=== PATIENT | female | born 1950 | race African-American/Black ===

== ENCOUNTER 2017-03-15 09:42 | Emergency (ER) | payer MEDICARE, MEDICAID ==
[~2017-03-15] VITALS: Ht 162.6 cm; Wt 70.0 kg
[~2017-03-15 09:42] MED LIST: ACET-2178 PO; CARB4TAB8; GABA250S4 PO; METF100P3 MC; NORCO
[2017-03-15] MEDS ORDERED: IBUPROFEN 600MG TABLET PO ONE (14:45)
[2017-03-15 15:12] LABS: BASOPHILS % 0.5 % (0.0-2.0); EOSINOPHILS % 1.6 % (0.0-5.0); HEMATOCRIT. 34.7 % (36.0-48.0); HEMOGLOBIN. 11.8 g/dL (12.0-16.0); LYMPHOCYTES % 45.6 % (20.0-50.0); MEAN CORPUSCULAR HEMOGLOBIN 33.6 pg (28.0-32.0); MEAN PLATELET VOLUME 8.1 fl (7.4-10.4); MONOCYTES % 6.3 % (2.0-8.0); PLATELET 195 x1000/uL (130-400); RED BLOOD CELL COUNT 3.51 mill/uL (4.2-5.4); RED CELL DISTRIBUTION WIDTH 14.7 % (11.6-14.6)
[2017-03-15 15:18] LABS: CHLORIDE 111 mEq/L (98-107)
[2017-03-15 15:28] LABS: CARBON DIOXIDE 22 mEq/L (21-32)
[2017-03-15] MEDS ORDERED: ACETAMINOPHEN 325MG TABLET PO ONE (15:45)
[2017-03-15 15:53] VITALS: BP 124/76
[2017-03-15 16:01] LABS: CLARITY URINE CLEAR (CLEAR); COLOR URINE YELLOW (YELLOW); GLUCOSE URINE NEGATIVE (NEGATIVE); KETONES URINE NEGATIVE (NEGATIVE); LEUKOCYTE ESTERASE URINE 2+ (NEGATIVE); NITRITE URINE NEGATIVE (NEGATIVE); OCCULT BLOOD URINE NEGATIVE (NEGATIVE); PROTEIN URINE TRACE (NEGATIVE); SPECIFIC GRAVITY URINE 1.022 (1.005-1.030); UROBILINOGEN URINE 0.2 E.U./dL (0.2-1.0)
[2017-03-15 16:22] LABS: *AMPHETAMINES SCREEN URINE NEGATIVE (NEGATIVE); *BARBITURATES SCREEN URINE NEGATIVE (NEGATIVE); *BENZODIAZEPINES SCREEN URINE PRESUMTIVE POSITIVE (NEGATIVE); *COCAINE SCREEN URINE NEGATIVE (NEGATIVE); CANNABINOID URINE SCREEN PRESUMTIVE POSITIVE (NEGATIVE); METHADONE URINE SCREEN NEGATIVE (NEGATIVE); OPIATES URINE SCREEN NEGATIVE (NEGATIVE); PHENCYCLIDINE URINE SCREEN NEGATIVE (NEGATIVE)
== END 2017-03-15 17:46 | disposition home or self-care (01) ==
LOC: ER 10:35
DX: R07.89 Other chest pain (principal); N39.0 Urinary tract infection, site not specified; E11.65 Type 2 diabetes mellitus with hyperglycemia; J45.909 Unspecified asthma, uncomplicated; I10 Essential (primary) hypertension; Z79.84 Long term (current) use of oral hypoglycemic drugs; Z79.4 Long term (current) use of insulin; Z79.899 Other long term (current) drug therapy
CPT/HCPCS: 36415; 71010; 80053; 80305; 81001; 82962; 83690; 85025; 93005; 99285

== ENCOUNTER 2017-08-16 12:18 | Emergency (ER) | payer MEDICARE, MEDICAID ==
[~2017-08-16] VITALS: Ht 165.1 cm; Wt 61.0 kg
[~2017-08-16 12:18] MED LIST changes: -CARB4TAB8; +CARB4TAB8 PO; +HYDR-4134 PO; +LISI40TA4 PO; -METF100P3 MC; +METF100P3 PO; -NORCO; +NORCO PO
[2017-08-16] MEDS ORDERED: SODIUM CHLORIDE 0.9% 1,000 ML IV ONE (12:54)
[2017-08-16 13:36] LABS: BASOPHILS % 0.3 % (0.0-2.0); EOSINOPHILS % 1.3 % (0.0-5.0); HEMOGLOBIN. 11.7 g/dL (12.0-16.0); LYMPHOCYTES % 40.2 % (20.0-50.0); MEAN CORPUSCULAR VOLUME 98.9 fL (81.0-99.0); MEAN PLATELET VOLUME 8.6 fl (7.4-10.4); MONOCYTES % 7.7 % (2.0-8.0); NEUTROPHILS % 50.5 % (40.0-76.0); PLATELET 192 x1000/uL (130-400); RED BLOOD CELL COUNT 3.54 mill/uL (4.2-5.4); RED CELL DISTRIBUTION WIDTH 13.2 % (11.6-14.6)
[2017-08-16 13:41] LABS: INR 1.1; PROTHROMBIN TIME 11.5 sec (9.4-11.6)
[2017-08-16 13:52] LABS: CHLORIDE 115 mEq/L (98-107); TROPONIN I < 0.02 ng/mL (0.00-0.04)
[2017-08-16 14:23] LABS: KETONES URINE NEGATIVE (NEGATIVE); LEUKOCYTE ESTERASE URINE 2+ (NEGATIVE); NITRITE URINE NEGATIVE (NEGATIVE); OCCULT BLOOD URINE NEGATIVE (NEGATIVE); PH URINE 5.5 (4.5-8.0); PROTEIN URINE NEGATIVE (NEGATIVE); SPECIFIC GRAVITY URINE 1.019 (1.005-1.030); UROBILINOGEN URINE 0.2 E.U./dL (0.2-1.0)
[2017-08-16] MEDS ORDERED: ACETAMINOPHEN 325MG TABLET PO ONE (14:30)
[2017-08-16 14:54] LABS: CLARITY URINE CLOUDY (CLEAR); COLOR URINE YELLOW (YELLOW)
[2017-08-16 14:55] VITALS: BP 123/70
== END 2017-08-16 15:44 | disposition home or self-care (01) ==
LOC: ER 12:38
DX: I95.9 Hypotension, unspecified (principal); R53.1 Weakness; J45.909 Unspecified asthma, uncomplicated; E11.9 Type 2 diabetes mellitus without complications; I10 Essential (primary) hypertension; F12.90 Cannabis use, unspecified, uncomplicated; R56.9 Unspecified convulsions; Z88.6 Allergy status to analgesic agent; Z90.710 Acquired absence of both cervix and uterus
CPT/HCPCS: 36415; 71045; 80053; 81001; 83605; 83690; 84484; 85025; 85610; 93005; 96360; 96361; 99285; J7030

== ENCOUNTER 2017-09-18 17:26 | Emergency (ER) | payer MEDICARE, MEDICAID ==
[~2017-09-18] VITALS: Ht 152.4 cm; Wt 69.0 kg
[2017-09-18] MEDS ORDERED: ONDANSETRON HCL 4MG/2ML VIAL IV STA (18:15)
[2017-09-18] MEDS ORDERED: MORPHINE SULFATE 4 MG/ML CPJ (NOT FOR IM USE) IV STA (18:15)
[2017-09-18] MEDS ORDERED: SODIUM CHLORIDE 0.9% 500 ML IV ONE (18:15)
[2017-09-18 18:43] LABS: BASOPHILS % 0.5 % (0.0-2.0); EOSINOPHILS % 1.8 % (0.0-5.0); HEMATOCRIT. 39.9 % (36.0-48.0); HEMOGLOBIN. 13.3 g/dL (12.0-16.0); LYMPHOCYTES % 43.6 % (20.0-50.0); MEAN CORPUSCULAR HEMOGLOBIN 34.3 pg (28.0-32.0); MEAN CORPUSCULAR VOLUME 102.9 fL (81.0-99.0); MEAN PLATELET VOLUME 8.4 fl (7.4-10.4); MONOCYTES % 8.7 % (2.0-8.0); NEUTROPHILS % 45.4 % (40.0-76.0); PLATELET 188 x1000/uL (130-400); RED BLOOD CELL COUNT 3.88 mill/uL (4.2-5.4); RED CELL DISTRIBUTION WIDTH 14.4 % (11.6-14.6)
[2017-09-18 18:48] LABS: CHLORIDE 115 mEq/L (98-107)
[2017-09-18 18:50] LABS: PROTHROMBIN TIME 10.5 sec (9.4-11.6)
[2017-09-18 18:54] VITALS: BP 129/73
[2017-09-18 19:08] LABS: CLARITY URINE CLOUDY (CLEAR); COLOR URINE DARK YELLOW (YELLOW); KETONES URINE TRACE (NEGATIVE); LEUKOCYTE ESTERASE URINE 2+ (NEGATIVE); NITRITE URINE NEGATIVE (NEGATIVE); OCCULT BLOOD URINE NEGATIVE (NEGATIVE); PROTEIN URINE TRACE (NEGATIVE); SPECIFIC GRAVITY URINE 1.024 (1.005-1.030)
[2017-09-18] MEDS ORDERED: CEFTRIAXONE 1 G PREMIX 50 ML IV ONE (19:30)
== END 2017-09-18 21:27 | disposition home or self-care (01) ==
LOC: ER 17:44
DX: N39.0 Urinary tract infection, site not specified (principal); E11.9 Type 2 diabetes mellitus without complications; I10 Essential (primary) hypertension; J45.909 Unspecified asthma, uncomplicated; F12.10 Cannabis abuse, uncomplicated; R56.9 Unspecified convulsions; Z88.6 Allergy status to analgesic agent
CPT/HCPCS: 36415; 80053; 81003; 83690; 85025; 85610; 96361; 96365; 96375; 99284; J0696; J2270; J2405; J7030; J7040

== ENCOUNTER 2017-09-19 16:06 | Emergency (ER) | payer MEDICARE, MEDICAID ==
[~2017-09-19] VITALS: Ht 165.1 cm; Wt 68.0 kg
[2017-09-19] MEDS ORDERED: LORAZEPAM 2MG/ML CPJ IV PRN (18:30)
[2017-09-19 18:45] LABS: BASOPHILS % 0.6 % (0.0-2.0); EOSINOPHILS % 1.6 % (0.0-5.0); HEMATOCRIT. 37.9 % (36.0-48.0); HEMOGLOBIN. 12.6 g/dL (12.0-16.0); LYMPHOCYTES % 43.3 % (20.0-50.0); MEAN CORPUSCULAR HEMOGLOBIN 34.2 pg (28.0-32.0); MEAN CORPUSCULAR VOLUME 102.4 fL (81.0-99.0); MEAN PLATELET VOLUME 8.5 fl (7.4-10.4); MONOCYTES % 10.1 % (2.0-8.0); NEUTROPHILS % 44.4 % (40.0-76.0); PLATELET 166 x1000/uL (130-400); RED CELL DISTRIBUTION WIDTH 14.6 % (11.6-14.6)
[2017-09-19 18:52] LABS: CHLORIDE 113 mEq/L (98-107)
[2017-09-19 18:56] LABS: ETHANOL BLOOD < 10 mg/dL
[2017-09-19 19:13] VITALS: BP 124/61
== END 2017-09-19 19:17 | disposition home or self-care (01) ==
LOC: ER 16:06
DX: E11.649 Type 2 diabetes mellitus with hypoglycemia without coma (principal); I10 Essential (primary) hypertension; E11.9 Type 2 diabetes mellitus without complications; J45.909 Unspecified asthma, uncomplicated; F12.10 Cannabis abuse, uncomplicated; Z88.6 Allergy status to analgesic agent
CPT/HCPCS: 36415; 80053; 80185; 82962; 85025; 99284; G0482

== ENCOUNTER 2017-11-04 09:18 | Emergency (ER) | payer MEDICARE, MEDICAID ==
[~2017-11-04] VITALS: Ht 167.6 cm; Wt 70.0 kg
[2017-11-04 09:50] VITALS: BP 159/79
[2017-11-04 10:01] LABS: BASOPHILS % 0.5 % (0.0-2.0); CHLORIDE 109 mEq/L (98-107); EOSINOPHILS % 1.4 % (0.0-5.0); HEMATOCRIT. 37.6 % (36.0-48.0); HEMOGLOBIN. 12.6 g/dL (12.0-16.0); MEAN CORPUSCULAR HEMOGLOBIN 34.2 pg (28.0-32.0); MEAN CORPUSCULAR VOLUME 101.9 fL (81.0-99.0); MEAN PLATELET VOLUME 8.6 fl (7.4-10.4); MONOCYTES % 6.8 % (2.0-8.0); NEUTROPHILS % 58.3 % (40.0-76.0); PLATELET 192 x1000/uL (130-400); RED BLOOD CELL COUNT 3.69 mill/uL (4.2-5.4); RED CELL DISTRIBUTION WIDTH 13.6 % (11.6-14.6)
[2017-11-04 10:02] LABS: INR 1.1; PROTHROMBIN TIME 11.4 sec (9.4-11.6)
[2017-11-04] MEDS ORDERED: ONDANSETRON HCL 4MG/2ML VIAL IV NR (10:30)
[2017-11-04] MEDS ORDERED: SODIUM CHLORIDE 0.9% 1,000 ML IV ONE (10:30)
[2017-11-04 10:47] LABS: CLARITY URINE CLOUDY (CLEAR); COLOR URINE YELLOW (YELLOW); KETONES URINE NEGATIVE (NEGATIVE); LEUKOCYTE ESTERASE URINE 1+ (NEGATIVE); NITRITE URINE NEGATIVE (NEGATIVE); OCCULT BLOOD URINE NEGATIVE (NEGATIVE); PH URINE 5.5 (4.5-8.0); PROTEIN URINE TRACE (NEGATIVE); SPECIFIC GRAVITY URINE 1.019 (1.005-1.030)
== END 2017-11-04 12:58 | disposition home or self-care (01) ==
LOC: ER 09:21
DX: N39.0 Urinary tract infection, site not specified (principal); D75.89 Other specified diseases of blood and blood-forming organs; R19.7 Diarrhea, unspecified; R74.0 Nonspecific elevation of levels of transaminase and lactic acid dehydrogenase [LDH]; I25.2 Old myocardial infarction; J44.9 Chronic obstructive pulmonary disease, unspecified; I10 Essential (primary) hypertension; E11.9 Type 2 diabetes mellitus without complications; F12.10 Cannabis abuse, uncomplicated; Z90.710 Acquired absence of both cervix and uterus; Z88.6 Allergy status to analgesic agent; Z79.84 Long term (current) use of oral hypoglycemic drugs
CPT/HCPCS: 36415; 76705; 80053; 81003; 83690; 85025; 85610; 87086; 96361; 96374; 99285; J2405; J7030

== ENCOUNTER 2017-11-09 18:36 | Emergency (ER) | payer MEDICARE, MEDICAID ==
[~2017-11-09] VITALS: Ht 162.6 cm; Wt 80.0 kg
[2017-11-09] MEDS ORDERED: ONDANSETRON HCL 4MG/2ML VIAL IV ONE (19:15)
[2017-11-09] MEDS ORDERED: TRAMADOL 50MG TABLET PO ONE (19:15)
[2017-11-09 19:40] LABS: BASOPHILS % 0.4 % (0.0-2.0); CHLORIDE 111 mEq/L (98-107); EOSINOPHILS % 0.9 % (0.0-5.0); HEMATOCRIT. 37.5 % (36.0-48.0); HEMOGLOBIN. 12.6 g/dL (12.0-16.0); LYMPHOCYTES % 39.7 % (20.0-50.0); MEAN CORPUSCULAR HEMOGLOBIN 34.2 pg (28.0-32.0); MEAN CORPUSCULAR VOLUME 101.6 fL (81.0-99.0); MEAN PLATELET VOLUME 8.3 fl (7.4-10.4); MONOCYTES % 7.2 % (2.0-8.0); NEUTROPHILS % 51.8 % (40.0-76.0); PLATELET 198 x1000/uL (130-400); RED BLOOD CELL COUNT 3.69 mill/uL (4.2-5.4); RED CELL DISTRIBUTION WIDTH 13.3 % (11.6-14.6)
[2017-11-09 19:42] LABS: INR 1.2; PROTHROMBIN TIME 12.1 sec (9.4-11.6)
[2017-11-09 23:30] VITALS: BP 140/70
== END 2017-11-09 23:31 | disposition home or self-care (01) ==
LOC: ER 20:48
DX: R10.9 Unspecified abdominal pain (principal); G89.29 Other chronic pain; J45.909 Unspecified asthma, uncomplicated; E11.9 Type 2 diabetes mellitus without complications; F10.20 Alcohol dependence, uncomplicated; Z88.6 Allergy status to analgesic agent; Z90.710 Acquired absence of both cervix and uterus
CPT/HCPCS: 36415; 74022; 80053; 83690; 85025; 85610; 96374; 99285; J2405

== ENCOUNTER 2018-02-12 21:13 | Inpatient (IN) | payer MEDICARE, MEDICAID ==
[~2018-02-12] VITALS: Ht 167.6 cm; Wt 78.0 kg
[~2018-02-12 21:13] MED LIST changes: +ATOR10TA MT; +LEVO500T2 MT; -LISI40TA4 PO; -METF100P3 PO
[2018-02-13 00:18] LABS: BASOPHILS % 0.6 % (0.0-2.0); EOSINOPHILS % 2.5 % (0.0-5.0); HEMATOCRIT. 39.2 % (36.0-48.0); HEMOGLOBIN. 13.4 g/dL (12.0-16.0); LYMPHOCYTES % 31.1 % (20.0-50.0); MEAN CORPUSCULAR HEMOGLOBIN 34.2 pg (28.0-32.0); MEAN CORPUSCULAR VOLUME 100.4 fL (81.0-99.0); MEAN PLATELET VOLUME 8.5 fl (7.4-10.4); MONOCYTES % 6.7 % (2.0-8.0); NEUTROPHILS % 59.1 % (40.0-76.0); PLATELET 174 x1000/uL (130-400); RED BLOOD CELL COUNT 3.91 mill/uL (4.2-5.4); RED CELL DISTRIBUTION WIDTH 12.9 % (11.6-14.6)
[2018-02-13 00:22] LABS: CHLORIDE 107 mEq/L (98-107)
[2018-02-13 00:26] LABS: ETHANOL BLOOD < 10 mg/dL
[2018-02-13] MEDS ORDERED: ACETAMINOPHEN WITH CODEINE 300/30MG TABLET PO ONE (01:00)
[2018-02-13] MEDS ORDERED: NITROGLYCERIN 0.4MG TABLET SL SL SCH (04:28)
[2018-02-13 04:53] LABS: CLARITY URINE CLOUDY (CLEAR); COLOR URINE YELLOW (YELLOW); KETONES URINE NEGATIVE (NEGATIVE); LEUKOCYTE ESTERASE URINE 2+ (NEGATIVE); NITRITE URINE NEGATIVE (NEGATIVE); OCCULT BLOOD URINE NEGATIVE (NEGATIVE); PH URINE 5.5 (4.5-8.0); PROTEIN URINE 1+ (NEGATIVE); SPECIFIC GRAVITY URINE 1.021 (1.005-1.030); UROBILINOGEN URINE 0.2 E.U./dL (0.2-1.0)
[2018-02-13 06:46] LABS: *AMPHETAMINES SCREEN URINE NEGATIVE (NEGATIVE); *BARBITURATES SCREEN URINE NEGATIVE (NEGATIVE); *BENZODIAZEPINES SCREEN URINE NEGATIVE (NEGATIVE)
[2018-02-13 06:47] LABS: *COCAINE SCREEN URINE NEGATIVE (NEGATIVE); CANNABINOID URINE SCREEN PRESUMTIVE POSITIVE (NEGATIVE); METHADONE URINE SCREEN NEGATIVE (NEGATIVE); OPIATES URINE SCREEN PRESUMTIVE POSITIVE (NEGATIVE); PHENCYCLIDINE URINE SCREEN NEGATIVE (NEGATIVE)
[2018-02-13] MEDS ORDERED: ACETAMINOPHEN 650MG/20.3ML UDC GT PRN (08:30)
[2018-02-13] MEDS ORDERED: DIPHENHYDRAMINE 50MG/ML VIAL IV PRN (08:30)
[2018-02-13] MEDS ORDERED: IPRATROPIUM/ALBUTEROL 0.5-3(2.5)MG/3ML NEB INH PRN (08:30)
[2018-02-13] MEDS ORDERED: DOCUSATE SODIUM 100MG CAPSULE PO PRN (08:30)
[2018-02-13] MEDS ORDERED: ONDANSETRON HCL 4MG/2ML VIAL IV PRN (08:30)
[2018-02-13] MEDS ORDERED: ACETAMINOPHEN 650MG SUPP PR PRN (08:30)
[2018-02-13] MEDS ORDERED: ACETAMINOPHEN 325MG TABLET PO PRN (08:30)
[2018-02-13] MEDS ORDERED: NA PHOS,M-B/NA PHOS,DI-BA ENEMA 118ML PR PRN (08:30)
[2018-02-13] MEDS ORDERED: GUAIFENESIN 200MG/10ML SUGAR FREE UDC PO PRN (08:30)
[2018-02-13] MEDS ORDERED: NITROGLYCERIN 0.4MG TABLET SL SL PRN (08:45)
[2018-02-13 09:00] VITALS: BP 148/82
[2018-02-13] MEDS: HYDROCODONE/ACETAMINOPHEN 10/325MG TABLET PO PRN ×3 (09:07→20:24)
[2018-02-13 10:23] VITALS: BP 148/82
[2018-02-13 12:00] VITALS: BP 152/73
[2018-02-13] MEDS ORDERED: DEXTROSE 50% WATER 50ML SYRINGE IV PRN (12:00)
[2018-02-13] MEDS ORDERED: ATORVASTATIN CALCIUM 10MG TABLET PO SCH ×2 (12:00→21:00)
[2018-02-13] MEDS: BLOOD SUGAR DIAGNOSTIC STRIP TEST SCH ×3 (12:20→18:35)
[2018-02-13] MEDS: INSULIN LISPRO 100 UNITS/ML SUBCUT SCH ×3 (12:50→20:34)
[2018-02-13] MEDS: SODIUM CHLORIDE 0.9% 1,000 ML IV SCH ×2 (13:41→23:29)
[2018-02-13] MEDS: ENOXAPARIN 40MG/0.4ML SYR SUBCUT SCH (13:41)
[2018-02-13] MEDS: SODIUM CHLORIDE 0.9% INJ 3ML FLUSH IVF SCH ×2 (14:00→22:55)
[2018-02-13 15:11] LABS: BASOPHILS % 0.6 % (0.0-2.0); EOSINOPHILS % 3.1 % (0.0-5.0); HEMATOCRIT. 35.6 % (36.0-48.0); HEMOGLOBIN. 12.2 g/dL (12.0-16.0); LYMPHOCYTES % 44.9 % (20.0-50.0); MEAN CORPUSCULAR HEMOGLOBIN 34.4 pg (28.0-32.0); MEAN CORPUSCULAR VOLUME 100.5 fL (81.0-99.0); MEAN PLATELET VOLUME 8.7 fl (7.4-10.4); MONOCYTES % 7.9 % (2.0-8.0); NEUTROPHILS % 43.5 % (40.0-76.0); PLATELET 159 x1000/uL (130-400); RED BLOOD CELL COUNT 3.54 mill/uL (4.2-5.4); RED CELL DISTRIBUTION WIDTH 12.9 % (11.6-14.6)
[2018-02-13 15:16] LABS: D-DIMER < 0.19 mg/L FEU (<0.50); PROTHROMBIN TIME 10.7 sec (9.4-11.6)
[2018-02-13 15:26] LABS: CHLORIDE 110 mEq/L (98-107)
[2018-02-13 15:37] LABS: CREATINE KINASE MB FRACTION 0.7 ng/mL (0.5-3.6); LDL CHOLESTEROL 110 mg/dL (5-100)
[2018-02-13 15:38] LABS: CREATINE KINASE 37 IU/L (26-192)
[2018-02-13 15:39] LABS: HDL CHOLESTEROL 48 mg/dL (40-59); T4 FREE 1.22 ng/dL (0.76-1.46)
[2018-02-13 16:00] VITALS: BP 149/88
[2018-02-13 20:00] VITALS: BP 148/74
[2018-02-14] VITALS: BP 136/62
[2018-02-14 00:16] LABS: CREATINE KINASE 33 IU/L (26-192)
[2018-02-14 00:17] LABS: CREATINE KINASE MB FRACTION < 0.5 ng/mL (0.5-3.6)
[2018-02-14 04:00] VITALS: BP 150/69
[2018-02-14] MEDS: SODIUM CHLORIDE 0.9% INJ 3ML FLUSH IVF SCH (05:17)
[2018-02-14] MEDS: BLOOD SUGAR DIAGNOSTIC STRIP TEST SCH ×2 (06:37→12:20)
[2018-02-14] MEDS: INSULIN LISPRO 100 UNITS/ML SUBCUT SCH ×2 (07:50→12:50)
[2018-02-14 08:00] VITALS: BP 142/71
[2018-02-14] MEDS: ENOXAPARIN 40MG/0.4ML SYR SUBCUT SCH (08:47)
[2018-02-14] MEDS: HYDROCODONE/ACETAMINOPHEN 10/325MG TABLET PO PRN (09:24)
[2018-02-14 12:00] VITALS: BP 128/70
[2018-02-14] MEDS: SODIUM CHLORIDE 0.9% 1,000 ML IV SCH (12:52)
[2018-02-14 14:12] VITALS: BP 128/70
[2018-02-15] MEDS ORDERED: ASPIRIN 81MG TABLET PO SCH (09:00)
[2018-02-17] MEDS ORDERED: GABA-290 MT (14:07)
[2018-02-17] MEDS ORDERED: ACET-1465 PO (14:09)
[2018-02-17] MEDS ORDERED: SUCR1TAB MT (14:10)
[2018-02-17] MEDS ORDERED: PANT40TA4 MT (14:12)
[2018-02-17] MEDS ORDERED: TRAZ-213 MT (14:16)
[2018-02-17] MEDS ORDERED: LURA80TA MT (14:16)
[2018-02-17] MEDS ORDERED: ASPI-1159 MT (14:19)
[2018-02-17] MEDS ORDERED: METF10004 MT (14:20)
[2018-02-17] MEDS ORDERED: XALAO EACHEYE (14:21)
[2018-02-17] MEDS ORDERED: ONDA4TAB50 MT (14:22)
[2018-02-17] MEDS ORDERED: BUSP10TA3 MT (14:23)
[2018-02-17] MEDS ORDERED: METO25TA6 MT (14:40)
[2018-02-17] MEDS ORDERED: LOSA50TA20 MT (14:41)
[2018-02-17] MEDS ORDERED: INSU100I19 SQ (14:42)
[2018-02-17] MEDS ORDERED: DOCU250C14 GT (14:43)
[2018-02-17] MEDS ORDERED: ATROV INH (14:44)
== END 2018-02-14 16:05 | disposition home or self-care (01) | DRG 392 ==
LOC: ER 21:32 → 6WST 02-13 01:15 → EDBEDREQ 02-13 01:21 → EDBEDREQTM 02-13 01:21 → ENRESERV 02-13 07:38
PROVIDERS: ADMIT Family Medicine; ATTEND Family Medicine
DX: K21.9 Gastro-esophageal reflux disease without esophagitis (principal); E78.5 Hyperlipidemia, unspecified; I10 Essential (primary) hypertension; F10.10 Alcohol abuse, uncomplicated; J45.909 Unspecified asthma, uncomplicated; E11.65 Type 2 diabetes mellitus with hyperglycemia; Z87.891 Personal history of nicotine dependence; Z88.9 Allergy status to unspecified drugs, medicaments and biological substances; Z79.4 Long term (current) use of insulin
CPT/HCPCS: 36415; 70450; 71045; 80053; 80061; 80305; 81003; 82550; 82553; 82962; 83036; 83880; 84439; 84443; 84484; 85025; 85379; 85610; 93005; 93970; 99285; G0482; J1650; J1815; J7030

== ENCOUNTER 2018-02-26 21:14 | Emergency (ER) | payer MEDICARE, MEDICAID ==
[~2018-02-26] VITALS: Ht 162.6 cm; Wt 59.0 kg
[~2018-02-26 21:14] MED LIST changes: +ASPI-1159 MT; +ATROV INH; +BUSP10TA3 MT; +DOCU250C14 GT; +GABA-290 MT; -GABA250S4 PO; +INSU100I19 SQ; -LEVO500T2 MT; +LOSA50TA20 MT; +LURA80TA MT; +METF10004 MT; +METO25TA6 MT; -NORCO PO; +ONDA4TAB50 MT; +PANT40TA4 MT; +SUCR1TAB MT; +TRAZ-213 MT; +XALAO EACHEYE
[2018-02-26] MEDS ORDERED: ACETAMINOPHEN 325MG TABLET PO ONE (23:15)
[2018-02-27] MEDS ORDERED: DIPHENHYDRAMINE 50MG/ML VIAL IV ONE (00:15)
[2018-02-27 00:37] LABS: CLARITY URINE TURBID (CLEAR); COLOR URINE DARK YELLOW (YELLOW); KETONES URINE TRACE (NEGATIVE); LEUKOCYTE ESTERASE URINE 3+ (NEGATIVE); NITRITE URINE NEGATIVE (NEGATIVE); OCCULT BLOOD URINE 2+ (NEGATIVE); PROTEIN URINE 2+ (NEGATIVE); SPECIFIC GRAVITY URINE 1.022 (1.005-1.030)
[2018-02-27 00:45] LABS: *AMPHETAMINES SCREEN URINE NEGATIVE (NEGATIVE); *BARBITURATES SCREEN URINE NEGATIVE (NEGATIVE)
[2018-02-27 00:46] LABS: *BENZODIAZEPINES SCREEN URINE NEGATIVE (NEGATIVE); *COCAINE SCREEN URINE NEGATIVE (NEGATIVE); CANNABINOID URINE SCREEN PRESUMTIVE POSITIVE (NEGATIVE); METHADONE URINE SCREEN NEGATIVE (NEGATIVE); OPIATES URINE SCREEN PRESUMTIVE POSITIVE (NEGATIVE); PHENCYCLIDINE URINE SCREEN NEGATIVE (NEGATIVE)
[2018-02-27 01:35] LABS: BASOPHILS % 0.3 % (0.0-2.0); EOSINOPHILS % 2.3 % (0.0-5.0); HEMATOCRIT. 33.4 % (36.0-48.0); HEMOGLOBIN. 11.6 g/dL (12.0-16.0); LYMPHOCYTES % 50.3 % (20.0-50.0); MEAN CORPUSCULAR HEMOGLOBIN 35.6 pg (28.0-32.0); MEAN CORPUSCULAR VOLUME 102.1 fL (81.0-99.0); MEAN PLATELET VOLUME 8.2 fl (7.4-10.4); MONOCYTES % 6.9 % (2.0-8.0); NEUTROPHILS % 40.2 % (40.0-76.0); PLATELET 172 x1000/uL (130-400); RED BLOOD CELL COUNT 3.27 mill/uL (4.2-5.4); RED CELL DISTRIBUTION WIDTH 13.4 % (11.6-14.6)
[2018-02-27 01:43] LABS: CHLORIDE 113 mEq/L (98-107)
[2018-02-27 01:48] LABS: ETHANOL BLOOD < 10 mg/dL
[2018-02-27 01:59] LABS: CARBAMAZEPINE < 0.5 ug/mL (4-12); PHENOBARBITAL < 2.1 ug/mL (15.0-40.0); VALPROIC ACID < 3.0 ug/mL (50-100)
[2018-02-27 03:50] VITALS: BP 141/76
== END 2018-02-27 03:53 | disposition home or self-care (01) ==
LOC: ER 21:14
DX: G40.909 Epilepsy, unspecified, not intractable, without status epilepticus (principal); N39.0 Urinary tract infection, site not specified; R41.82 Altered mental status, unspecified; J45.909 Unspecified asthma, uncomplicated; E11.9 Type 2 diabetes mellitus without complications; Z79.4 Long term (current) use of insulin; Z88.6 Allergy status to analgesic agent; Z79.82 Long term (current) use of aspirin
CPT/HCPCS: 36415; 70450; 80053; 80156; 80165; 80184; 80185; 80305; 81003; 82962; 85025; 87086; 96374; 99285; G0482; J1200

== ENCOUNTER 2018-04-12 22:09 | Emergency (ER) | payer MEDICARE, MEDICAID ==
[~2018-04-12] VITALS: Ht 152.4 cm; Wt 75.0 kg
[~2018-04-12 22:09] MED LIST changes: -ACET-2178 PO; -METF10004 MT
[2018-04-12] MEDS ORDERED: ACETAMINOPHEN 325MG TABLET PO STA (23:21)
[2018-04-13 00:48] LABS: BASOPHILS % 0.4 % (0.0-2.0); EOSINOPHILS % 0.6 % (0.0-5.0); HEMOGLOBIN. 10.7 g/dL (12.0-16.0); LYMPHOCYTES % 30.4 % (20.0-50.0); MEAN CORPUSCULAR HEMOGLOBIN 35.3 pg (28.0-32.0); MEAN CORPUSCULAR VOLUME 102.5 fL (81.0-99.0); MEAN PLATELET VOLUME 8.6 fl (7.4-10.4); MONOCYTES % 10.5 % (2.0-8.0); NEUTROPHILS % 58.1 % (40.0-76.0); PLATELET 155 x1000/uL (130-400); RED BLOOD CELL COUNT 3.03 mill/uL (4.2-5.4); RED CELL DISTRIBUTION WIDTH 12.9 % (11.6-14.6)
[2018-04-13 00:52] LABS: CHLORIDE 105 mEq/L (98-107)
[2018-04-13 00:55] LABS: PARTIAL THROMBOPLASTIN TIME 24.5 sec (23.4-31.0)
[2018-04-13 01:02] LABS: BETA HYDROXYBUTYRATE 0.1 mMol/L (0.0-0.3)
[2018-04-13 01:08] LABS: CLARITY URINE CLEAR (CLEAR); COLOR URINE YELLOW (YELLOW); KETONES URINE NEGATIVE (NEGATIVE); LEUKOCYTE ESTERASE URINE NEGATIVE (NEGATIVE); NITRITE URINE NEGATIVE (NEGATIVE); OCCULT BLOOD URINE NEGATIVE (NEGATIVE); PH URINE 5.5 (4.5-8.0); PROTEIN URINE 1+ (NEGATIVE); UROBILINOGEN URINE 0.2 E.U./dL (0.2-1.0)
[2018-04-13] MEDS ORDERED: INSULIN REGULAR (HUMULIN R) 300UNITS/3ML SUBCUT SCH (05:27)
[2018-04-13] MEDS ORDERED: MORPHINE SULFATE 4 MG/ML CPJ (NOT FOR IM USE) IV ONE (05:30)
[2018-04-13 10:56] VITALS: BP 134/77
== END 2018-04-13 11:21 | disposition home or self-care (01) ==
LOC: ER 23:42 → CANBEDREQ 04-13 07:45 → ER 04-13 11:21
DX: J06.9 Acute upper respiratory infection, unspecified (principal); E11.65 Type 2 diabetes mellitus with hyperglycemia; I10 Essential (primary) hypertension; K21.9 Gastro-esophageal reflux disease without esophagitis; R56.9 Unspecified convulsions; Z98.890 Other specified postprocedural states; Z96.659 Presence of unspecified artificial knee joint; Z79.4 Long term (current) use of insulin; Z79.899 Other long term (current) drug therapy; Z88.5 Allergy status to narcotic agent
CPT/HCPCS: 36415; 71045; 80053; 81003; 82010; 82962; 83605; 84484; 85025; 85610; 85730; 87040; 87086; 87804; 96372; 96374; 99285; J1815; J2270

== ENCOUNTER 2018-07-18 17:26 | Emergency (ER) | payer MEDICARE, MEDICAID ==
[~2018-07-18] VITALS: Ht 172.7 cm; Wt 75.0 kg
[2018-07-18] MEDS ORDERED: ACETAMINOPHEN 325MG TABLET PO ONE (21:00)
[2018-07-18 23:49] LABS: BASOPHILS % 0.3 % (0.0-2.0); HEMATOCRIT. 36.5 % (36.0-48.0); HEMOGLOBIN. 12.5 g/dL (12.0-16.0); LYMPHOCYTES % 32.1 % (20.0-50.0); MEAN CORPUSCULAR HEMOGLOBIN 33.4 pg (28.0-32.0); MEAN CORPUSCULAR VOLUME 97.2 fL (81.0-99.0); MEAN PLATELET VOLUME 8.8 fl (7.4-10.4); MONOCYTES % 9.9 % (2.0-8.0); NEUTROPHILS % 56.7 % (40.0-76.0); PLATELET 166 x1000/uL (130-400); RED BLOOD CELL COUNT 3.76 mill/uL (4.2-5.4); RED CELL DISTRIBUTION WIDTH 13.3 % (11.6-14.6)
[2018-07-18 23:59] LABS: CHLORIDE 106 mEq/L (98-107)
[2018-07-19] MEDS ORDERED: POTASSIUM CHLORIDE 20MEQ TABLET SR PO SCH (00:30)
[2018-07-19] MEDS ORDERED: HYDRALAZINE HCL 25MG TABLET PO ONE (01:30)
[2018-07-19] MEDS ORDERED: ACETAMINOPHEN 325MG TABLET PO SCH (01:30)
[2018-07-19] MEDS ORDERED: METOPROLOL TARTRATE 25MG TABLET PO ONE (01:30)
[2018-07-19] MEDS ORDERED: LOSARTAN POTASSIUM 50 MG TABLET PO ONE (01:30)
[2018-07-19 03:53] VITALS: BP 174/71
== END 2018-07-19 03:56 | disposition home or self-care (01) ==
LOC: ER 17:36 → CANBEDREQ 07-19 03:40 → ER 07-19 03:56
DX: R07.89 Other chest pain (principal); E87.6 Hypokalemia; G89.29 Other chronic pain; E11.9 Type 2 diabetes mellitus without complications; K21.9 Gastro-esophageal reflux disease without esophagitis; G40.909 Epilepsy, unspecified, not intractable, without status epilepticus; I11.9 Hypertensive heart disease without heart failure; R94.31 Abnormal electrocardiogram [ECG] [EKG]; Z88.6 Allergy status to analgesic agent
CPT/HCPCS: 36415; 71045; 83880; 84484; 93005; 99284

== ENCOUNTER 2018-08-21 23:59 | Inpatient (IN) | payer MEDICARE, MEDICAID ==
[~2018-08-21] VITALS: Ht 177.8 cm; Wt 72.6 kg
[2018-08-22] VITALS: BP 111/60
[2018-08-22] MEDS ORDERED: HYDROCODONE/ACETAMINOPHEN 5/325MG TABLET PO STA (00:55)
[2018-08-22 02:04] LABS: EOSINOPHILS % 1.5 % (0.0-5.0); HEMATOCRIT. 37.1 % (36.0-48.0); HEMOGLOBIN. 12.5 g/dL (12.0-16.0); LYMPHOCYTES % 35.2 % (20.0-50.0); MEAN CORPUSCULAR HEMOGLOBIN 33.5 pg (28.0-32.0); MEAN CORPUSCULAR VOLUME 99.2 fL (81.0-99.0); MONOCYTES % 5.2 % (2.0-8.0); NEUTROPHILS % 57.1 % (40.0-76.0); RED BLOOD CELL COUNT 3.73 mill/uL (4.2-5.4); RED CELL DISTRIBUTION WIDTH 13.4 % (11.6-14.6)
[2018-08-22 02:06] LABS: CHLORIDE 116 mEq/L (98-107)
[2018-08-22 02:20] LABS: MEAN PLATELET VOLUME 10.1 fl (7.4-10.4)
[2018-08-22 02:21] LABS: PLATELET 154 x1000/uL (130-400)
[2018-08-22] MEDS ORDERED: ASPIRIN 325MG EC TABLET PO ONE (03:15)
[2018-08-22] MEDS ORDERED: GABAPENTIN 100MG CAPSULE PO ONE (03:30)
[2018-08-22] MEDS ORDERED: HYDROCODONE/ACETAMINOPHEN 10/325MG TABLET PO SCH (06:45)
[2018-08-22] MEDS ORDERED: NA PHOS,M-B/NA PHOS,DI-BA ENEMA 118ML PR PRN (09:45)
[2018-08-22] MEDS ORDERED: ACETAMINOPHEN 650MG SUPP PR PRN (09:45)
[2018-08-22] MEDS ORDERED: MAGNESIUM/ALUMINUM HYDROXIDE/SIMETHICONE 30ML UDC PO PRN (09:45)
[2018-08-22] MEDS ORDERED: ONDANSETRON HCL 4MG/2ML INJ IV PRN (09:45)
[2018-08-22] MEDS ORDERED: CLONIDINE 0.1MG TABLET PO PRN (09:45)
[2018-08-22] MEDS ORDERED: DIPHENHYDRAMINE 50MG/ML VIAL IV PRN (09:45)
[2018-08-22] MEDS ORDERED: DOCUSATE SODIUM 100MG CAPSULE PO PRN (09:45)
[2018-08-22] MEDS ORDERED: IPRATROPIUM/ALBUTEROL 0.5-3(2.5)MG/3ML NEB INH PRN (09:45)
[2018-08-22] MEDS ORDERED: ACETAMINOPHEN 650MG/20.3ML UDC GT PRN (09:45)
[2018-08-22] MEDS ORDERED: GUAIFENESIN 200MG/10ML SUGAR FREE UDC PO PRN (09:45)
[2018-08-22] MEDS: HYDROCODONE/ACETAMINOPHEN 5/325MG TABLET PO PRN ×4 (10:10→23:34)
[2018-08-22] MEDS ORDERED: REGADENOSON 0.4 MG/5 ML IV SCH (10:45)
[2018-08-22 17:35] LABS: T4 FREE 1.02 ng/dL (0.76-1.46)
[2018-08-22 18:05] LABS: CREATINE KINASE MB FRACTION < 1.0 ng/mL (0.5-3.6)
[2018-08-22 18:10] LABS: CREATINE KINASE 70 IU/L (26-192)
[2018-08-22] MEDS ORDERED: AMLODIPINE 10MG TABLET PO NR (19:30)
[2018-08-22 20:00] VITALS: BP 183/79
[2018-08-22 21:00] VITALS: BP 183/79
[2018-08-22] MEDS ORDERED: DEXTROSE 50% WATER 50ML SYRINGE IV PRN (21:30)
[2018-08-22] MEDS ORDERED: MEDICATION NOT ON FORMULARY EA (Aspirin (Aspirin Low Dose) 1 TAB) MT SCH (21:30)
[2018-08-22] MEDS ORDERED: CARBINOXAMINE MALEATE 4 MG PO SCH (21:30)
[2018-08-22] MEDS: LATANOPROST 0.005% OPHTH DROPS 2.5ML EACHEYE SCH (22:00)
[2018-08-22] MEDS: HYDRALAZINE HCL 50MG TABLET PO SCH ×2 (22:00→22:27)
[2018-08-22] MEDS: ATORVASTATIN CALCIUM 10MG TABLET PO SCH (22:26)
[2018-08-22] MEDS: GABAPENTIN 300MG CAPSULE PO SCH (22:26)
[2018-08-22] MEDS: SODIUM CHLORIDE 0.9% INJ 3ML FLUSH IVF SCH (22:27)
[2018-08-22] MEDS: METOPROLOL TARTRATE 25MG TABLET PO SCH (22:28)
[2018-08-22] MEDS ORDERED: LOSARTAN POTASSIUM 50 MG TABLET PO SCH (22:30)
[2018-08-22] MEDS: LISINOPRIL 20MG TABLET PO SCH ×2 (22:30→22:31)
[2018-08-22] MEDS: BUSPIRONE HCL 10MG TABLET PO SCH (22:32)
[2018-08-22] MEDS: ACETAMINOPHEN 325MG TABLET PO PRN (22:33)
[2018-08-22] MEDS: INSULIN GLARGINE UD 100 UNITS/ML SYR SUBCUT SCH (23:45)
[2018-08-23] VITALS: BP 111/60
[2018-08-23 00:42] LABS: CREATINE KINASE 87 IU/L (26-192); CREATINE KINASE MB FRACTION < 1.0 ng/mL (0.5-3.6)
[2018-08-23 04:00] VITALS: BP 157/72
[2018-08-23] MEDS: HYDROCODONE/ACETAMINOPHEN 5/325MG TABLET PO PRN ×5 (04:25→23:25)
[2018-08-23] MEDS: METOPROLOL TARTRATE 25MG TABLET PO SCH ×3 (06:00→21:36)
[2018-08-23] MEDS: BLOOD SUGAR DIAGNOSTIC STRIP TEST SCH ×4 (06:06→21:57)
[2018-08-23] MEDS: SODIUM CHLORIDE 0.9% INJ 3ML FLUSH IVF SCH ×3 (06:12→21:40)
[2018-08-23] MEDS: BUSPIRONE HCL 10MG TABLET PO SCH ×3 (06:54→21:57)
[2018-08-23] MEDS: HYDRALAZINE HCL 50MG TABLET PO SCH ×3 (06:55→21:37)
[2018-08-23 07:14] LABS: BASOPHILS % 0.5 % (0.0-2.0); EOSINOPHILS % 1.8 % (0.0-5.0); HEMATOCRIT. 33.8 % (36.0-48.0); HEMOGLOBIN. 11.4 g/dL (12.0-16.0); LYMPHOCYTES % 50.7 % (20.0-50.0); MEAN CORPUSCULAR HEMOGLOBIN 33.9 pg (28.0-32.0); MEAN CORPUSCULAR VOLUME 100.4 fL (81.0-99.0); MONOCYTES % 8.3 % (2.0-8.0); NEUTROPHILS % 38.7 % (40.0-76.0); PLATELET 150 x1000/uL (130-400); RED BLOOD CELL COUNT 3.37 mill/uL (4.2-5.4); RED CELL DISTRIBUTION WIDTH 13.3 % (11.6-14.6)
[2018-08-23 07:21] LABS: CHLORIDE 112 mEq/L (98-107)
[2018-08-23 07:27] LABS: LDL CHOLESTEROL 84 mg/dL (5-100)
[2018-08-23 07:28] LABS: HDL CHOLESTEROL 60 mg/dL (40-59)
[2018-08-23 08:00] VITALS: BP 156/58
[2018-08-23] MEDS: GABAPENTIN 300MG CAPSULE PO SCH ×2 (09:00→20:27)
[2018-08-23] MEDS: LISINOPRIL 20MG TABLET PO SCH (09:28)
[2018-08-23] MEDS: ASPIRIN 81MG TABLET PO SCH (09:29)
[2018-08-23] MEDS: AMLODIPINE 10MG TABLET PO SCH (09:29)
[2018-08-23] MEDS: ENOXAPARIN 40MG/0.4ML SYR SUBCUT SCH (09:30)
[2018-08-23 12:00] VITALS: BP 150/74
[2018-08-23] MEDS: ACETAMINOPHEN 325MG TABLET PO PRN (12:00)
[2018-08-23] MEDS: INSULIN LISPRO 100 UNITS/ML SUBCUT SCH ×3 (12:15→22:00)
[2018-08-23 16:00] VITALS: BP 151/63
[2018-08-23 20:00] VITALS: BP 153/84
[2018-08-23] MEDS: LATANOPROST 0.005% OPHTH DROPS 2.5ML EACHEYE SCH (20:27)
[2018-08-23] MEDS: ATORVASTATIN CALCIUM 10MG TABLET PO SCH (20:27)
[2018-08-23] MEDS ORDERED: MEDICATION NOT ON FORMULARY EA (Lurasidone Hcl (Latuda) 1 TAB) MT SCH (21:00)
[2018-08-23] MEDS ORDERED: INSULIN DETEMIR 30 UNIT SQ SCH (21:00)
[2018-08-23] MEDS ORDERED: LORAZEPAM 2MG/ML CPJ IV NR (21:45)
[2018-08-23] MEDS: INSULIN GLARGINE UD 100 UNITS/ML SYR SUBCUT SCH (22:01)
[2018-08-24] VITALS: BP 135/64
[2018-08-24 04:00] VITALS: BP 131/60
[2018-08-24] MEDS: METOPROLOL TARTRATE 25MG TABLET PO SCH (06:27)
[2018-08-24] MEDS: HYDROCODONE/ACETAMINOPHEN 5/325MG TABLET PO PRN (06:27)
[2018-08-24] MEDS: HYDRALAZINE HCL 50MG TABLET PO SCH (06:28)
[2018-08-24] MEDS: SODIUM CHLORIDE 0.9% INJ 3ML FLUSH IVF SCH (06:28)
[2018-08-24] MEDS: BUSPIRONE HCL 10MG TABLET PO SCH (06:28)
[2018-08-24] MEDS: INSULIN LISPRO 100 UNITS/ML SUBCUT SCH ×2 (06:33→12:15)
[2018-08-24] MEDS: BLOOD SUGAR DIAGNOSTIC STRIP TEST SCH ×2 (06:33→11:45)
[2018-08-24] MEDS ORDERED: REGADENOSON 0.4 MG/5 ML IV ONE (07:56)
[2018-08-24 08:00] VITALS: BP 153/73
[2018-08-24] MEDS: ENOXAPARIN 40MG/0.4ML SYR SUBCUT SCH (09:00)
[2018-08-24] MEDS: ASPIRIN 81MG TABLET PO SCH (09:23)
[2018-08-24] MEDS: GABAPENTIN 300MG CAPSULE PO SCH (09:24)
[2018-08-24] MEDS: AMLODIPINE 10MG TABLET PO SCH (09:24)
[2018-08-24] MEDS: LISINOPRIL 20MG TABLET PO SCH (09:25)
[2018-08-24 11:39] VITALS: BP 153/73
== END 2018-08-24 15:20 | disposition home or self-care (01) | DRG 392 ==
LOC: ER 23:59 → 5WST 08-22 03:14 → ENRESERV 08-22 19:05
PROVIDERS: ADMIT Family Medicine; ATTEND Family Medicine
DX: K21.9 Gastro-esophageal reflux disease without esophagitis (principal); E11.40 Type 2 diabetes mellitus with diabetic neuropathy, unspecified; I10 Essential (primary) hypertension; E78.5 Hyperlipidemia, unspecified; G40.909 Epilepsy, unspecified, not intractable, without status epilepticus; F12.90 Cannabis use, unspecified, uncomplicated; F41.9 Anxiety disorder, unspecified; J45.909 Unspecified asthma, uncomplicated; Z88.9 Allergy status to unspecified drugs, medicaments and biological substances; Z79.4 Long term (current) use of insulin; I25.2 Old myocardial infarction; Z79.84 Long term (current) use of oral hypoglycemic drugs
CPT/HCPCS: 36415; 78452; 80061; 82550; 82553; 82962; 83036; 83880; 84439; 84443; 84484; 85379; 93005; 93017; 93306; 93970; 99284; 99285; A9500; J1200; J1650; J1815; J2060; J2785

== ENCOUNTER 2018-11-24 10:35 | Emergency (ER) | payer MEDICARE, MEDICAID ==
[~2018-11-24] VITALS: Ht 162.6 cm; Wt 70.0 kg
[2018-11-24 11:59] LABS: CLARITY URINE CLEAR (CLEAR); COLOR URINE YELLOW (YELLOW); KETONES URINE NEGATIVE (NEGATIVE); LEUKOCYTE ESTERASE URINE TRACE (NEGATIVE); NITRITE URINE NEGATIVE (NEGATIVE); OCCULT BLOOD URINE NEGATIVE (NEGATIVE); PH URINE 5.5 (4.5-8.0); PROTEIN URINE 2+ (NEGATIVE); SPECIFIC GRAVITY URINE 1.019 (1.005-1.030); UROBILINOGEN URINE 0.2 E.U./dL (0.2-1.0)
[2018-11-24] MEDS ORDERED: KETOROLAC 15MG/ML VIAL IV ONE (12:45)
[2018-11-24] MEDS ORDERED: ONDANSETRON HCL 4MG/2ML INJ IV ONE (12:45)
[2018-11-24 13:20] VITALS: BP 138/75
== END 2018-11-24 18:48 | disposition home or self-care (01) ==
LOC: ER 10:35
DX: R30.0 Dysuria (principal); F41.9 Anxiety disorder, unspecified; E11.9 Type 2 diabetes mellitus without complications; J45.909 Unspecified asthma, uncomplicated; I10 Essential (primary) hypertension; Z79.899 Other long term (current) drug therapy; Z88.6 Allergy status to analgesic agent; Z79.4 Long term (current) use of insulin; Z79.82 Long term (current) use of aspirin
CPT/HCPCS: 81003; 96374; 96375; 99283; J1885; J2405

== ENCOUNTER 2019-01-02 11:45 | Emergency (ER) | payer MEDICARE, MEDICAID ==
[~2019-01-02] VITALS: Ht 167.6 cm; Wt 75.0 kg
[~2019-01-02 11:45] MED LIST changes: -ASPI-1159 MT; +ASPI-1393 MT; -LOSA50TA20 MT; +LOSA50TA41 MT
[2019-01-02 13:26] LABS: BASOPHILS % 0.4 % (0.0-2.0); EOSINOPHILS % 1.3 % (0.0-5.0); HEMATOCRIT. 35.8 % (36.0-48.0); HEMOGLOBIN. 12.3 g/dL (12.0-16.0); LYMPHOCYTES % 36.5 % (20.0-50.0); MEAN CORPUSCULAR VOLUME 102.2 fL (81.0-99.0); MEAN PLATELET VOLUME 8.1 fl (7.4-10.4); MONOCYTES % 6.6 % (2.0-8.0); NEUTROPHILS % 55.2 % (40.0-76.0); PLATELET 181 x1000/uL (130-400); RED CELL DISTRIBUTION WIDTH 13.3 % (11.6-14.6)
[2019-01-02 13:32] LABS: CHLORIDE 113 mEq/L (98-107)
[2019-01-02 13:33] LABS: PROTHROMBIN TIME 10.2 sec (9.6-11.0)
[2019-01-02 13:36] LABS: ETHANOL BLOOD < 10 mg/dL
[2019-01-02 14:56] LABS: CLARITY URINE CLOUDY (CLEAR); COLOR URINE YELLOW (YELLOW); KETONES URINE TRACE (NEGATIVE); LEUKOCYTE ESTERASE URINE TRACE (NEGATIVE); NITRITE URINE NEGATIVE (NEGATIVE); OCCULT BLOOD URINE NEGATIVE (NEGATIVE); PROTEIN URINE 2+ (NEGATIVE); SPECIFIC GRAVITY URINE 1.022 (1.005-1.030); UROBILINOGEN URINE 0.2 E.U./dL (0.2-1.0)
[2019-01-02 15:04] LABS: *AMPHETAMINES SCREEN URINE NEGATIVE (NEGATIVE); *BARBITURATES SCREEN URINE NEGATIVE (NEGATIVE); *BENZODIAZEPINES SCREEN URINE NEGATIVE (NEGATIVE); *COCAINE SCREEN URINE NEGATIVE (NEGATIVE)
[2019-01-02 15:05] LABS: CANNABINOID URINE SCREEN PRESUMTIVE POSITIVE (NEGATIVE); METHADONE URINE SCREEN NEGATIVE (NEGATIVE); OPIATES URINE SCREEN PRESUMTIVE POSITIVE (NEGATIVE); PHENCYCLIDINE URINE SCREEN NEGATIVE (NEGATIVE)
[2019-01-02] MEDS ORDERED: TRAMADOL 50MG TABLET PO ONE (15:15)
[2019-01-02] MEDS ORDERED: NITROFURANTOIN 100MG M/M CAPSULE PO ONE (15:15)
[2019-01-02 15:40] VITALS: BP 135/78
== END 2019-01-02 15:59 | disposition home or self-care (01) ==
LOC: ER 12:21
DX: N39.0 Urinary tract infection, site not specified (principal); I11.0 Hypertensive heart disease with heart failure; K59.00 Constipation, unspecified; J45.909 Unspecified asthma, uncomplicated; F41.9 Anxiety disorder, unspecified; E11.9 Type 2 diabetes mellitus without complications; Z79.82 Long term (current) use of aspirin; Z79.899 Other long term (current) drug therapy; Z79.4 Long term (current) use of insulin; Z88.6 Allergy status to analgesic agent
CPT/HCPCS: 36415; 74176; 80305; 80320; 99284; G0480

== ENCOUNTER 2019-01-25 10:45 | Inpatient (IN) | payer MEDICARE, MEDICAID ==
[~2019-01-25] VITALS: Ht 167.6 cm; Wt 63.5 kg
[2019-01-25 12:54] LABS: BASOPHILS % 0.5 % (0.0-2.0); EOSINOPHILS % 1.4 % (0.0-5.0); HEMATOCRIT. 35.7 % (36.0-48.0); HEMOGLOBIN. 12.4 g/dL (12.0-16.0); LYMPHOCYTES % 46.2 % (20.0-50.0); MEAN CORPUSCULAR HEMOGLOBIN 34.9 pg (28.0-32.0); MEAN CORPUSCULAR VOLUME 100.8 fL (81.0-99.0); MEAN PLATELET VOLUME 8.2 fl (7.4-10.4); NEUTROPHILS % 44.9 % (40.0-76.0); PLATELET 176 x1000/uL (130-400); RED BLOOD CELL COUNT 3.55 mill/uL (4.2-5.4); RED CELL DISTRIBUTION WIDTH 12.7 % (11.6-14.6)
[2019-01-25 12:56] LABS: CHLORIDE 112 mEq/L (98-107)
[2019-01-25] MEDS ORDERED: SODIUM CHLORIDE 0.9% 1,000 ML IV ONE (13:30)
[2019-01-25 16:17] LABS: CLARITY URINE CLEAR (CLEAR); COLOR URINE YELLOW (YELLOW); KETONES URINE NEGATIVE (NEGATIVE); LEUKOCYTE ESTERASE URINE 1+ (NEGATIVE); NITRITE URINE NEGATIVE (NEGATIVE); OCCULT BLOOD URINE TRACE (NEGATIVE); PROTEIN URINE 2+ (NEGATIVE); SPECIFIC GRAVITY URINE 1.017 (1.005-1.030); UROBILINOGEN URINE 0.2 E.U./dL (0.2-1.0)
[2019-01-25] MEDS ORDERED: CLONIDINE 0.1MG TABLET PO PRN (16:30)
[2019-01-25] MEDS ORDERED: ACETAMINOPHEN 325MG TABLET PO PRN (16:30)
[2019-01-25] MEDS ORDERED: MAGNESIUM/ALUMINUM HYDROXIDE/SIMETHICONE 30ML UDC PO PRN (16:30)
[2019-01-25] MEDS ORDERED: ONDANSETRON HCL 4MG/2ML INJ IV PRN (16:30)
[2019-01-25] MEDS ORDERED: GUAIFENESIN 200MG/10ML SUGAR FREE UDC PO PRN (16:30)
[2019-01-25] MEDS ORDERED: LORAZEPAM 2MG/ML CPJ IV PRN (16:30)
[2019-01-25] MEDS ORDERED: DOCUSATE SODIUM 100MG CAPSULE PO PRN (16:30)
[2019-01-25 17:30] VITALS: BP 173/91
[2019-01-25] MEDS ORDERED: DEXTROSE 50% WATER 50ML SYRINGE IV PRN (19:15)
[2019-01-25] MEDS: LOSARTAN POTASSIUM 50 MG TABLET PO SCH (19:16)
[2019-01-25] MEDS: HYDROCODONE/ACETAMINOPHEN 5/325MG TABLET PO PRN ×2 (19:16→23:59)
[2019-01-25 20:00] VITALS: BP 167/73
[2019-01-25] MEDS: ENOXAPARIN 40MG/0.4ML SYR SUBCUT SCH ×2 (20:00→21:58)
[2019-01-25] MEDS ORDERED: TRAZODONE HCL 50MG TABLET PO SCH (21:00)
[2019-01-25] MEDS: INSULIN LISPRO 100 UNITS/ML SUBCUT SCH (21:00)
[2019-01-25] MEDS ORDERED: ZOLPIDEM TARTRATE 5MG TABLET PO PRN (21:30)
[2019-01-25] MEDS: BUSPIRONE HCL 10MG TABLET PO SCH (21:58)
[2019-01-25] MEDS: GABAPENTIN 300MG CAPSULE PO SCH (21:58)
[2019-01-25] MEDS: BLOOD SUGAR DIAGNOSTIC STRIP TEST SCH (21:59)
[2019-01-25] MEDS ORDERED: INSULIN GLARGINE UD 100 UNITS/ML SYR SUBCUT SCH (22:00)
[2019-01-25] MEDS: INSULIN GLARGINE UD 100 UNITS/ML SYR SUBCUT SCH ×2 (22:01→22:11)
[2019-01-26] VITALS: BP 154/80
[2019-01-26 00:23] LABS: CREATINE KINASE 78 IU/L (26-192)
[2019-01-26 04:00] VITALS: BP 162/85
[2019-01-26] MEDS: BUSPIRONE HCL 10MG TABLET PO SCH (05:56)
[2019-01-26] MEDS: GABAPENTIN 300MG CAPSULE PO SCH (05:57)
[2019-01-26] MEDS: BLOOD SUGAR DIAGNOSTIC STRIP TEST SCH ×2 (06:15→11:45)
[2019-01-26] MEDS: INSULIN LISPRO 100 UNITS/ML SUBCUT SCH ×2 (06:17→12:15)
[2019-01-26 07:40] LABS: BASOPHILS % 0.6 % (0.0-2.0); EOSINOPHILS % 1.9 % (0.0-5.0); HEMATOCRIT. 30.3 % (36.0-48.0); HEMOGLOBIN. 10.5 g/dL (12.0-16.0); LYMPHOCYTES % 58.2 % (20.0-50.0); MEAN CORPUSCULAR HEMOGLOBIN 34.7 pg (28.0-32.0); MEAN CORPUSCULAR VOLUME 100.4 fL (81.0-99.0); MEAN PLATELET VOLUME 8.3 fl (7.4-10.4); MONOCYTES % 7.7 % (2.0-8.0); NEUTROPHILS % 31.6 % (40.0-76.0); PLATELET 140 x1000/uL (130-400); RED BLOOD CELL COUNT 3.02 mill/uL (4.2-5.4); RED CELL DISTRIBUTION WIDTH 12.7 % (11.6-14.6)
[2019-01-26 07:44] LABS: CHLORIDE 113 mEq/L (98-107)
[2019-01-26 07:51] LABS: LDL CHOLESTEROL 46 mg/dL (5-100)
[2019-01-26 07:52] LABS: CREATINE KINASE 63 IU/L (26-192)
[2019-01-26 07:53] LABS: HDL CHOLESTEROL 46 mg/dL (40-59)
[2019-01-26 08:00] VITALS: BP 112/61
[2019-01-26] MEDS ORDERED: AMLODIPINE 10MG TABLET PO SCH (09:00)
[2019-01-26] MEDS: LOSARTAN POTASSIUM 50 MG TABLET PO SCH (10:06)
[2019-01-26 12:00] VITALS: BP 136/72
[2019-01-26] MEDS ORDERED: LEVOFLOXACIN 500MG PREMIX 100 ML IV SCH (13:00)
[2019-01-26 13:33] VITALS: BP 136/72
== END 2019-01-26 14:05 | disposition home or self-care (01) | DRG 312 ==
LOC: ER 10:45 → 5WST 14:48 → ENRESERV 15:38
PROVIDERS: ADMIT Hospitalist; ATTEND Hospitalist
DX: I95.1 Orthostatic hypotension (principal); E11.40 Type 2 diabetes mellitus with diabetic neuropathy, unspecified; E78.5 Hyperlipidemia, unspecified; G40.909 Epilepsy, unspecified, not intractable, without status epilepticus; I10 Essential (primary) hypertension; J45.909 Unspecified asthma, uncomplicated; F41.9 Anxiety disorder, unspecified; W18.39XA Other fall on same level, initial encounter; Y93.01 Activity, walking, marching and hiking; Y92.092 Bedroom in other non-institutional residence as the place of occurrence of the external cause; Y99.8 Other external cause status; Z91.81 History of falling; Z79.899 Other long term (current) drug therapy; Z88.8 Allergy status to other drugs, medicaments and biological substances
CPT/HCPCS: 36415; 71045; 80061; 82550; 82962; 83036; 83880; 84439; 84443; 84484; 93005; 93306; 93970; 96360; 96361; 97162; 97530; 99285; J1650; J1815; J1956

== ENCOUNTER 2019-02-24 02:22 | Emergency (ER) | payer MEDICARE, MEDICAID ==
[~2019-02-24] VITALS: Ht 160 cm; Wt 61.0 kg
[2019-02-24] MEDS ORDERED: ACETAMINOPHEN 325MG TABLET PO ONE (03:30)
[2019-02-24 04:07] LABS: CLARITY URINE CLOUDY (CLEAR); COLOR URINE YELLOW (YELLOW); KETONES URINE NEGATIVE (NEGATIVE); LEUKOCYTE ESTERASE URINE 1+ (NEGATIVE); NITRITE URINE NEGATIVE (NEGATIVE); OCCULT BLOOD URINE TRACE (NEGATIVE); PROTEIN URINE 2+ (NEGATIVE); SPECIFIC GRAVITY URINE 1.012 (1.005-1.030); UROBILINOGEN URINE 0.2 E.U./dL (0.2-1.0)
[2019-02-24 04:13] LABS: CHLORIDE 113 mEq/L (98-107)
[2019-02-24 04:16] LABS: PARTIAL THROMBOPLASTIN TIME 25.7 sec (23.4-31.0); PROTHROMBIN TIME 9.9 sec (9.6-11.0)
[2019-02-24 04:17] LABS: BASOPHILS % 0.3 % (0.0-2.0); EOSINOPHILS % 1.1 % (0.0-5.0); HEMATOCRIT. 34.9 % (36.0-48.0); HEMOGLOBIN. 12.2 g/dL (12.0-16.0); LYMPHOCYTES % 31.2 % (20.0-50.0); MEAN CORPUSCULAR HEMOGLOBIN 34.8 pg (28.0-32.0); MEAN CORPUSCULAR VOLUME 99.8 fL (81.0-99.0); MEAN PLATELET VOLUME 8.8 fl (7.4-10.4); MONOCYTES % 6.9 % (2.0-8.0); NEUTROPHILS % 60.5 % (40.0-76.0); PLATELET 159 x1000/uL (130-400); RED BLOOD CELL COUNT 3.49 mill/uL (4.2-5.4); RED CELL DISTRIBUTION WIDTH 12.7 % (11.6-14.6)
[2019-02-24 08:56] VITALS: BP 166/84
== END 2019-02-24 09:08 | disposition home or self-care (01) ==
LOC: ER 02:22
DX: N39.0 Urinary tract infection, site not specified (principal); F41.9 Anxiety disorder, unspecified; J45.909 Unspecified asthma, uncomplicated; I11.9 Hypertensive heart disease without heart failure; R56.9 Unspecified convulsions; E11.9 Type 2 diabetes mellitus without complications; Z79.4 Long term (current) use of insulin; Z88.6 Allergy status to analgesic agent; Z79.82 Long term (current) use of aspirin
CPT/HCPCS: 36415; 71045; 74176; 81003; 83880; 84484; 93005; 99284

== ENCOUNTER 2019-03-07 14:30 | Emergency (ER) | payer MEDICARE, MEDICAID ==
[~2019-03-07] VITALS: Ht 165.1 cm; Wt 73.0 kg
[2019-03-07] MEDS ORDERED: MORPHINE SULFATE 4 MG/ML CPJ (NOT FOR IM USE) IV STA (16:04)
[2019-03-07] MEDS ORDERED: ONDANSETRON HCL 4MG/2ML INJ IV STA (16:04)
[2019-03-07] MEDS ORDERED: FAMOTIDINE 20MG/2ML VIAL IV STA (16:04)
[2019-03-07] MEDS ORDERED: SODIUM CHLORIDE 0.9% 1,000 ML IV ONE (16:04)
[2019-03-07 16:20] LABS: BASOPHILS % 0.6 % (0.0-2.0); EOSINOPHILS % 0.4 % (0.0-5.0); HEMATOCRIT. 38.6 % (36.0-48.0); HEMOGLOBIN. 13.2 g/dL (12.0-16.0); LYMPHOCYTES % 16.9 % (20.0-50.0); MEAN CORPUSCULAR HEMOGLOBIN 34.4 pg (28.0-32.0); MEAN CORPUSCULAR VOLUME 100.9 fL (81.0-99.0); MEAN PLATELET VOLUME 8.5 fl (7.4-10.4); MONOCYTES % 4.7 % (2.0-8.0); NEUTROPHILS % 77.4 % (40.0-76.0); PLATELET 215 x1000/uL (130-400); RED BLOOD CELL COUNT 3.83 mill/uL (4.2-5.4); RED CELL DISTRIBUTION WIDTH 12.8 % (11.6-14.6)
[2019-03-07 16:25] LABS: CHLORIDE 108 mEq/L (98-107)
[2019-03-07 16:29] LABS: ETHANOL BLOOD < 10 mg/dL
[2019-03-07 18:37] LABS: CLARITY URINE CLEAR (CLEAR); COLOR URINE YELLOW (YELLOW); KETONES URINE NEGATIVE (NEGATIVE); LEUKOCYTE ESTERASE URINE 1+ (NEGATIVE); NITRITE URINE NEGATIVE (NEGATIVE); OCCULT BLOOD URINE NEGATIVE (NEGATIVE); PROTEIN URINE 1+ (NEGATIVE); SPECIFIC GRAVITY URINE 1.019 (1.005-1.030); UROBILINOGEN URINE 0.2 E.U./dL (0.2-1.0)
[2019-03-07 19:12] LABS: *AMPHETAMINES SCREEN URINE NEGATIVE (NEGATIVE); CANNABINOID URINE SCREEN PRESUMTIVE POSITIVE (NEGATIVE); METHADONE URINE SCREEN NEGATIVE (NEGATIVE); OPIATES URINE SCREEN PRESUMTIVE POSITIVE (NEGATIVE); PHENCYCLIDINE URINE SCREEN NEGATIVE (NEGATIVE)
[2019-03-07 19:13] LABS: *BARBITURATES SCREEN URINE NEGATIVE (NEGATIVE); *BENZODIAZEPINES SCREEN URINE NEGATIVE (NEGATIVE); *COCAINE SCREEN URINE NEGATIVE (NEGATIVE)
[2019-03-07 21:19] VITALS: BP 135/72
== END 2019-03-07 21:19 | disposition home or self-care (01) ==
LOC: ER 14:30
DX: R10.13 Epigastric pain (principal); N39.0 Urinary tract infection, site not specified; G89.29 Other chronic pain; I10 Essential (primary) hypertension; E78.00 Pure hypercholesterolemia, unspecified; Z88.6 Allergy status to analgesic agent; Z87.19 Personal history of other diseases of the digestive system
CPT/HCPCS: 36415; 71045; 80053; 80305; 80320; 81003; 83690; 84484; 85025; 85610; 93005; 96374; 96375; 99284; J2270; J2405; J3490; J7030; G0480

== ENCOUNTER 2020-03-04 10:10 | Inpatient (IN) | payer MEDICARE, MEDICAID ==
[~2020-03-04] VITALS: Ht 152.4 cm; Wt 65.5 kg
[~2020-03-04 10:10] MED LIST changes: -ASPI-1393 MT; +ASPI-1497 MT; +EMPA10TA MT; +HYDR25TA MT; +ISON300T19 MT; +LAMO25TA15 MT; +LAMO25TA9 PO; +METF-816 MT; +PREG75CA MT; -TRAZ-213 MT; +TRAZ-252 MT; +VERA120T13 MT
[2020-03-04] MEDS ORDERED: MORPHINE SULFATE 4 MG/ML CPJ (NOT FOR IM USE) IV STA (10:33)
[2020-03-04] MEDS ORDERED: ONDANSETRON HCL 4MG/2ML INJ IV STA (10:33)
[2020-03-04 10:52] LABS: BASOPHILS % 0.5 % (0.0-2.0); EOSINOPHILS % 1.4 % (0.0-5.0); HEMATOCRIT. 36.9 % (36.0-48.0); HEMOGLOBIN. 12.5 g/dL (12.0-16.0); LYMPHOCYTES % 34.7 % (20.0-50.0); MEAN CORPUSCULAR HEMOGLOBIN 34.7 pg (28.0-32.0); MEAN CORPUSCULAR VOLUME 102.2 fL (81.0-99.0); MEAN PLATELET VOLUME 7.8 fl (7.4-10.4); MONOCYTES % 7.5 % (2.0-8.0); NEUTROPHILS % 55.9 % (40.0-76.0); PLATELET 234 x1000/uL (130-400); RED BLOOD CELL COUNT 3.61 mill/uL (4.2-5.4); RED CELL DISTRIBUTION WIDTH 12.7 % (11.6-14.6)
[2020-03-04 10:58] LABS: CHLORIDE 115 mEq/L (98-107)
[2020-03-04 12:14] LABS: PROTHROMBIN TIME 10.3 sec (9.6-11.0)
[2020-03-04] MEDS ORDERED: ENOXAPARIN 40MG/0.4ML SYR SUBCUT SCH (13:30)
[2020-03-04] MEDS ORDERED: ONDANSETRON HCL 4MG/2ML INJ IV PRN (13:30)
[2020-03-04] MEDS ORDERED: DOCUSATE SODIUM 100MG CAPSULE PO PRN (13:30)
[2020-03-04] MEDS ORDERED: NA PHOS,M-B/NA PHOS,DI-BA ENEMA 118ML PR PRN (13:30)
[2020-03-04] MEDS ORDERED: MAGNESIUM/ALUMINUM HYDROXIDE/SIMETHICONE 30ML UDC PO PRN (13:30)
[2020-03-04] MEDS ORDERED: CLONIDINE 0.1MG TABLET PO PRN (13:30)
[2020-03-04] MEDS ORDERED: LACTULOSE 20G/30ML UDC PO ONE (13:30)
[2020-03-04] MEDS ORDERED: GUAIFENESIN 200MG/10ML SUGAR FREE UDC PO PRN (13:30)
[2020-03-04] MEDS ORDERED: ACETAMINOPHEN 325MG TABLET PO PRN (13:30)
[2020-03-04] MEDS ORDERED: DEXTROSE 50% WATER 50ML SYRINGE IV PRN (13:45)
[2020-03-04] MEDS ORDERED: ENOXAPARIN 30MG/0.3ML SYR SUBCUT SCH (14:00)
[2020-03-04] MEDS: SODIUM CHLORIDE 0.45% 1,000 ML IV SCH (14:37)
[2020-03-04] MEDS: HYDRALAZINE HCL 50MG TABLET PO SCH (14:52)
[2020-03-04] MEDS ORDERED: HEPARIN 25,000 UNITS PREMIX 250 ML IV SCH ×2 (15:00→18:15)
[2020-03-04 16:00] LABS: CLARITY URINE CLOUDY (CLEAR); COLOR URINE YELLOW (YELLOW); KETONES URINE NEGATIVE (NEGATIVE); LEUKOCYTE ESTERASE URINE 2+ (NEGATIVE); NITRITE URINE NEGATIVE (NEGATIVE); OCCULT BLOOD URINE NEGATIVE (NEGATIVE); PROTEIN URINE NEGATIVE (NEGATIVE); SPECIFIC GRAVITY URINE 1.016 (1.005-1.030); UROBILINOGEN URINE 0.2 E.U./dL (0.2-1.0)
[2020-03-04] MEDS: HYDROMORPHONE HCL/PF 2MG/ML CPJ IV PRN ×2 (16:18→23:56)
[2020-03-04] MEDS ORDERED: HEPARIN BOLUS PRN aPTT 37-44 IV ×2 (18:15)
[2020-03-04] MEDS ORDERED: HEPARIN 80 UNITS/KG BOLUS IV NR (18:15)
[2020-03-04] MEDS ORDERED: HEPARIN BOLUS PRN aPTT <36 IV (18:15)
[2020-03-04] MEDS: HEPARIN 5000 UNITS/ML VIAL IV ONE ×2 (18:31→18:34)
[2020-03-04] MEDS: BLOOD SUGAR DIAGNOSTIC STRIP TEST SCH (19:39)
[2020-03-04] MEDS: INSULIN LISPRO 100 UNITS/ML SUBCUT SCH (19:39)
[2020-03-05] VITALS (9 sets, daily range): BP systolic 131–157; BP diastolic 63–86
[2020-03-05] MEDS: HYDRALAZINE HCL 50MG TABLET PO SCH ×3 (06:32→21:32)
[2020-03-05] MEDS: BLOOD SUGAR DIAGNOSTIC STRIP TEST SCH ×4 (06:34→20:37)
[2020-03-05] MEDS: INSULIN LISPRO 100 UNITS/ML SUBCUT SCH ×4 (06:34→20:37)
[2020-03-05 06:38] LABS: BASOPHILS % 0.6 % (0.0-2.0); EOSINOPHILS % 0.9 % (0.0-5.0); HEMATOCRIT. 35.4 % (36.0-48.0); HEMOGLOBIN. 12.2 g/dL (12.0-16.0); LYMPHOCYTES % 27.4 % (20.0-50.0); MEAN CORPUSCULAR VOLUME 101.2 fL (81.0-99.0); MEAN PLATELET VOLUME 7.6 fl (7.4-10.4); MONOCYTES % 7.9 % (2.0-8.0); NEUTROPHILS % 63.2 % (40.0-76.0); PLATELET 198 x1000/uL (130-400); RED CELL DISTRIBUTION WIDTH 12.7 % (11.6-14.6)
[2020-03-05] MEDS: SODIUM CHLORIDE 0.45% 1,000 ML IV SCH ×2 (08:00→16:40)
[2020-03-05] MEDS ORDERED: ENOXAPARIN 60MG/0.6ML SYR SUBCUT SCH (09:00)
[2020-03-05] MEDS: ENOXAPARIN 60MG/0.6ML SYR SUBCUT SCH (09:14)
[2020-03-05] MEDS: HYDROMORPHONE HCL/PF 2MG/ML CPJ IV PRN (09:15)
[2020-03-05] MEDS: DIPHENHYDRAMINE 50MG/ML VIAL IV PRN (09:17)
[2020-03-05] MEDS ORDERED: CEFTRIAXONE 1 G PREMIX 50 ML IV SCH (09:45)
[2020-03-05] MEDS ORDERED: LACTULOSE 20G/30ML UDC PO NR (11:00)
[2020-03-05] MEDS: CEFTRIAXONE 1,000 MG in DEXTROSE 5% WATER 50 ML IV SCH (11:22)
[2020-03-05 15:34] LABS: CHLORIDE 113 mEq/L (98-107)
[2020-03-05 15:41] LABS: TOTAL IRON BINDING CAPACITY 295 ug/dL (250-450)
[2020-03-05 15:42] LABS: HDL CHOLESTEROL 51 mg/dL (40-59)
[2020-03-05 15:43] LABS: LDL CHOLESTEROL 60 mg/dL (5-100)
[2020-03-05 16:02] LABS: FERRITIN 82 ng/mL (10-291)
[2020-03-05 16:13] LABS: HEPATITIS B SURFACE ANTIGEN NEGATIVE
[2020-03-05 16:15] LABS: FOLIC ACID (FOLATE) SERUM > 20.00 ng/mL (>5.38)
[2020-03-05 16:43] LABS: HEPATITIS A AB IGM NEGATIVE (NEGATIVE)
[2020-03-05] MEDS: DIPHENHYDRAMINE 25MG CAPSULE PO PRN (21:32)
[2020-03-06] VITALS (13 sets, daily range): BP systolic 116–158; BP diastolic 59–81
[2020-03-06] MEDS: HYDROMORPHONE HCL/PF 2MG/ML CPJ IV PRN ×4 (00:38→19:41)
[2020-03-06] MEDS: SODIUM CHLORIDE 0.45% 1,000 ML IV SCH ×3 (06:00→23:59)
[2020-03-06] MEDS: HYDRALAZINE HCL 50MG TABLET PO SCH ×3 (06:03→22:04)
[2020-03-06] MEDS: BLOOD SUGAR DIAGNOSTIC STRIP TEST SCH ×4 (06:04→21:00)
[2020-03-06] MEDS: DIPHENHYDRAMINE 25MG CAPSULE PO PRN (06:41)
[2020-03-06] MEDS: INSULIN LISPRO 100 UNITS/ML SUBCUT SCH ×4 (07:20→21:00)
[2020-03-06] MEDS: ENOXAPARIN 60MG/0.6ML SYR SUBCUT SCH (08:21)
[2020-03-06] MEDS ORDERED: LIDOCAINE HCL 1% 20ML VIAL (Pyxis) INJ ONE (09:12)
[2020-03-06 09:42] LABS: BASOPHILS % 0.5 % (0.0-2.0); HEMATOCRIT. 38.3 % (36.0-48.0); HEMOGLOBIN. 12.9 g/dL (12.0-16.0); MEAN CORPUSCULAR HEMOGLOBIN 34.8 pg (28.0-32.0); MONOCYTES % 11.6 % (2.0-8.0); NEUTROPHILS % 35.9 % (40.0-76.0); PLATELET 181 x1000/uL (130-400); RED BLOOD CELL COUNT 3.71 mill/uL (4.2-5.4); RED CELL DISTRIBUTION WIDTH 12.4 % (11.6-14.6)
[2020-03-06] MEDS: CEFTRIAXONE 1,000 MG in DEXTROSE 5% WATER 50 ML IV SCH (11:32)
[2020-03-06] MEDS ORDERED: MAGNESIUM HYDROXIDE 400MG/5ML 30ML UDC PO PRN (13:00)
[2020-03-06] MEDS ORDERED: SORBITOL 70% SOLN 30ML PO PRN (13:15)
[2020-03-06] MEDS: DOCUSATE SODIUM 250MG CAPSULE PO PRN (16:14)
[2020-03-06] MEDS ORDERED: SORBITOL 70% SOLN 30ML PO NR (17:15)
[2020-03-06] MEDS ORDERED: BISACODYL 10MG SUPP PR NR (17:15)
[2020-03-06] MEDS: DIPHENHYDRAMINE 50MG/ML VIAL IV PRN (21:40)
[2020-03-07] VITALS (12 sets, daily range): BP systolic 129–168; BP diastolic 65–84
[2020-03-07] MEDS: HYDROMORPHONE HCL/PF 2MG/ML CPJ IV PRN ×3 (02:22→18:17)
[2020-03-07] MEDS: BLOOD SUGAR DIAGNOSTIC STRIP TEST SCH ×4 (05:54→21:00)
[2020-03-07] MEDS: HYDRALAZINE HCL 50MG TABLET PO SCH ×3 (05:54→21:07)
[2020-03-07] MEDS: INSULIN LISPRO 100 UNITS/ML SUBCUT SCH ×4 (07:20→21:00)
[2020-03-07] MEDS: ENOXAPARIN 60MG/0.6ML SYR SUBCUT SCH (09:17)
[2020-03-07] MEDS: DIPHENHYDRAMINE 25MG CAPSULE PO PRN ×2 (09:55→18:18)
[2020-03-07] MEDS: DOCUSATE SODIUM 250MG CAPSULE PO PRN (09:55)
[2020-03-07] MEDS: DOCUSATE SODIUM 250MG CAPSULE PO SCH (18:19)
[2020-03-07] MEDS ORDERED: ZOLPIDEM TARTRATE 5MG TABLET PO PRN (21:26)
[2020-03-08] VITALS (8 sets, daily range): BP systolic 130–149; BP diastolic 65–77
[2020-03-08] MEDS: BUDESONIDE 0.5MG/2ML NEB HHN SCH ×2 (00:27→09:19)
[2020-03-08] MEDS: IPRATROPIUM/ALBUTEROL 0.5-3(2.5)MG/3ML NEB HHN PRN ×3 (00:27→11:55)
[2020-03-08] MEDS: DIPHENHYDRAMINE 25MG CAPSULE PO PRN ×2 (00:42→08:41)
[2020-03-08] MEDS: HYDROMORPHONE HCL/PF 2MG/ML CPJ IV PRN ×2 (00:43→08:42)
[2020-03-08] MEDS: BLOOD SUGAR DIAGNOSTIC STRIP TEST SCH ×2 (06:35→11:27)
[2020-03-08] MEDS: HYDRALAZINE HCL 50MG TABLET PO SCH ×2 (06:35→13:35)
[2020-03-08] MEDS: INSULIN LISPRO 100 UNITS/ML SUBCUT SCH ×2 (06:35→11:33)
[2020-03-08] MEDS: ENOXAPARIN 60MG/0.6ML SYR SUBCUT SCH (08:41)
[2020-03-08] MEDS: DOCUSATE SODIUM 250MG CAPSULE PO SCH (08:41)
[2020-03-08] MEDS ORDERED: LACT10SO7 MT (11:44)
[2020-03-08] MEDS ORDERED: APIX5TAB MT (11:44)
[2020-03-08] MEDS ORDERED: APIXABAN 5 MG TABLET PO SCH (17:00)
== END 2020-03-08 14:09 | disposition home health service (06) | DRG 299 ==
LOC: ER 10:30 → MICUSO 11:48 → EDBEDREQ 11:52 → EDBEDREQTM 11:52 → 3WST 03-05 04:27
PROVIDERS: ADMIT Hospitalist; ATTEND Hospitalist
PROC: 02HV33Z Insertion of Infusion Device into Superior Vena Cava, Percutaneous Approach (ICD-10-PCS; principal; 2020-03-06)
PROC: B5181ZA Fluoroscopy of Superior Vena Cava using Low Osmolar Contrast, Guidance (ICD-10-PCS; 2020-03-06)
PROC: B548ZZA Ultrasonography of Superior Vena Cava, Guidance (ICD-10-PCS; 2020-03-06)
DX: I82.452 Acute embolism and thrombosis of left peroneal vein (principal); N17.0 Acute kidney failure with tubular necrosis; N39.0 Urinary tract infection, site not specified; K59.09 Other constipation; K59.00 Constipation, unspecified; J45.909 Unspecified asthma, uncomplicated; G40.909 Epilepsy, unspecified, not intractable, without status epilepticus; D63.8 Anemia in other chronic diseases classified elsewhere; B19.20 Unspecified viral hepatitis C without hepatic coma; E88.09 Other disorders of plasma-protein metabolism, not elsewhere classified; N18.9 Chronic kidney disease, unspecified; D64.9 Anemia, unspecified; E11.22 Type 2 diabetes mellitus with diabetic chronic kidney disease; I12.9 Hypertensive chronic kidney disease with stage 1 through stage 4 chronic kidney disease, or unspecified chronic kidney disease; F12.90 Cannabis use, unspecified, uncomplicated; Z88.6 Allergy status to analgesic agent; Z79.84 Long term (current) use of oral hypoglycemic drugs; Z79.899 Other long term (current) drug therapy; Z71.51 Drug abuse counseling and surveillance of drug abuser
CPT/HCPCS: 36415; 36573; 71045; 74176; 76937; 80048; 80053; 80061; 81003; 82270; 82728; 82746; 82962; 83036; 83540; 83550; 83880; 84207; 84484; 85025; 86705; 86709; 86803; 87340; 93005; 93970; 94640; 96374; 99285; C1725; J0696; J1170; J1200; J1644; J1650; J2270; J2405; J3490; J7060; J7626; Q0163

== ENCOUNTER 2020-03-26 17:19 | Emergency (ER) | payer MEDICARE, MEDICAID ==
[~2020-03-26] VITALS: Ht 165.1 cm; Wt 64.0 kg
[~2020-03-26 17:19] MED LIST changes: +APIX5TAB MT; -ATROV INH; +LACT10SO7 MT; -LAMO25TA9 PO; -ONDA4TAB50 MT
[2020-03-26] MEDS ORDERED: FAMOTIDINE 20MG/2ML VIAL IV ONE (18:45)
[2020-03-26] MEDS ORDERED: ONDANSETRON HCL 4MG/2ML INJ IV ONE (18:45)
[2020-03-26] MEDS ORDERED: SODIUM CHLORIDE 0.9% 500 ML IV ONE (18:45)
[2020-03-26 18:50] LABS: BASOPHILS % 0.4 % (0.0-2.0); CHLORIDE 112 mEq/L (98-107); EOSINOPHILS % 1.6 % (0.0-5.0); HEMATOCRIT. 34.7 % (36.0-48.0); HEMOGLOBIN. 11.9 g/dL (12.0-16.0); LYMPHOCYTES % 45.6 % (20.0-50.0); MEAN CORPUSCULAR HEMOGLOBIN 34.9 pg (28.0-32.0); MEAN CORPUSCULAR VOLUME 102.3 fL (81.0-99.0); MEAN PLATELET VOLUME 7.8 fl (7.4-10.4); MONOCYTES % 7.4 % (2.0-8.0); PLATELET 230 x1000/uL (130-400); RED CELL DISTRIBUTION WIDTH 12.8 % (11.6-14.6)
[2020-03-26 18:52] LABS: PROTHROMBIN TIME 10.3 sec (9.6-11.0)
[2020-03-26] MEDS ORDERED: DICYCLOMINE HCL 10MG CAPSULE PO ONE (19:30)
[2020-03-26] MEDS ORDERED: ACETAMINOPHEN 325MG TABLET PO ONE (19:30)
[2020-03-26 19:53] VITALS: BP 126/64
[2020-03-26 20:10] LABS: CLARITY URINE CLOUDY (CLEAR); COLOR URINE YELLOW (YELLOW); KETONES URINE NEGATIVE (NEGATIVE); LEUKOCYTE ESTERASE URINE 1+ (NEGATIVE); NITRITE URINE NEGATIVE (NEGATIVE); OCCULT BLOOD URINE NEGATIVE (NEGATIVE); PH URINE 5.5 (4.5-8.0); PROTEIN URINE NEGATIVE (NEGATIVE); SPECIFIC GRAVITY URINE 1.017 (1.005-1.030); UROBILINOGEN URINE 0.2 E.U./dL (0.2-1.0)
== END 2020-03-26 19:53 | disposition home or self-care (01) ==
LOC: ER 17:19
DX: R10.32 Left lower quadrant pain (principal); N28.1 Cyst of kidney, acquired; I11.9 Hypertensive heart disease without heart failure; E11.9 Type 2 diabetes mellitus without complications; E78.00 Pure hypercholesterolemia, unspecified; J45.909 Unspecified asthma, uncomplicated; G40.909 Epilepsy, unspecified, not intractable, without status epilepticus; Z79.4 Long term (current) use of insulin
CPT/HCPCS: 36415; 71045; 74176; 80053; 81003; 83690; 84484; 85025; 85610; 93005; 96361; 96374; 96375; 99285; J2405; J3490; J7030

== ENCOUNTER 2020-04-30 13:46 | Emergency (ER) | payer MEDICARE, MEDICAID ==
[~2020-04-30] VITALS: Ht 165.1 cm; Wt 75.0 kg
[2020-04-30] MEDS ORDERED: ACETAMINOPHEN 325MG TABLET PO ONE (14:30)
[2020-04-30 15:32] VITALS: BP 120/76
== END 2020-04-30 15:32 | disposition home or self-care (01) ==
LOC: ER 13:46
DX: R30.0 Dysuria (principal); M25.552 Pain in left hip; I11.9 Hypertensive heart disease without heart failure; E11.9 Type 2 diabetes mellitus without complications; J45.909 Unspecified asthma, uncomplicated; G40.909 Epilepsy, unspecified, not intractable, without status epilepticus; Z79.4 Long term (current) use of insulin; Z88.6 Allergy status to analgesic agent; Z79.82 Long term (current) use of aspirin
CPT/HCPCS: 73502; 99283

== ENCOUNTER 2020-06-17 13:09 | Emergency (ER) | payer MEDICARE, MEDICAID ==
[~2020-06-17] VITALS: Ht 165.1 cm; Wt 60.0 kg
[2020-06-17 19:13] LABS: BASOPHILS % 0.2 % (0.0-2.0); EOSINOPHILS % 1.5 % (0.0-5.0); HEMATOCRIT. 33.7 % (36.0-48.0); HEMOGLOBIN. 11.4 g/dL (12.0-16.0); LYMPHOCYTES % 48.1 % (20.0-50.0); MEAN CORPUSCULAR HEMOGLOBIN 34.8 pg (28.0-32.0); MEAN CORPUSCULAR VOLUME 102.3 fL (81.0-99.0); MEAN PLATELET VOLUME 7.9 fl (7.4-10.4); NEUTROPHILS % 42.2 % (40.0-76.0); PLATELET 210 x1000/uL (130-400); RED BLOOD CELL COUNT 3.29 mill/uL (4.2-5.4)
[2020-06-17 19:20] LABS: CHLORIDE 111 mEq/L (98-107)
[2020-06-17] MEDS ORDERED: ACETAMINOPHEN 325MG TABLET PO ONE (19:45)
[2020-06-17 22:00] VITALS: BP 145/70
== END 2020-06-17 22:01 | disposition home or self-care (01) ==
LOC: ER 13:15
DX: R05 Cough (principal); J98.8 Other specified respiratory disorders; J45.909 Unspecified asthma, uncomplicated; E11.9 Type 2 diabetes mellitus without complications; I10 Essential (primary) hypertension; Z79.899 Other long term (current) drug therapy; Z88.6 Allergy status to analgesic agent; Z20.828 Contact with and (suspected) exposure to other viral communicable diseases
CPT/HCPCS: 36415; 71045; 80053; 85025; 87635; 93005; 99285; C9803

== ENCOUNTER 2020-07-07 13:48 | Emergency (ER) | payer MEDICARE, MEDICAID ==
[~2020-07-07] VITALS: Ht 172.7 cm; Wt 66.0 kg
[2020-07-07 13:52] VITALS: BP 116/53
[2020-07-07] MEDS ORDERED: ACETAMINOPHEN 325MG TABLET PO ONE (15:30)
[2020-07-07 16:58] LABS: BASOPHILS % 0.6 % (0.0-2.0); EOSINOPHILS % 1.6 % (0.0-5.0); HEMOGLOBIN. 10.9 g/dL (12.0-16.0); LYMPHOCYTES % 45.5 % (20.0-50.0); MEAN CORPUSCULAR HEMOGLOBIN 35.1 pg (28.0-32.0); MONOCYTES % 8.5 % (2.0-8.0); NEUTROPHILS % 43.8 % (40.0-76.0); RED BLOOD CELL COUNT 3.11 mill/uL (4.2-5.4); RED CELL DISTRIBUTION WIDTH 12.9 % (11.6-14.6)
[2020-07-07 17:01] LABS: CHLORIDE 114 mEq/L (98-107)
[2020-07-07 17:32] LABS: MEAN PLATELET VOLUME 8.5 fl (7.4-10.4); PLATELET 182 x1000/uL (130-400)
== END 2020-07-07 17:50 | disposition home or self-care (01) ==
LOC: ER 14:31
DX: B34.9 Viral infection, unspecified (principal); I11.0 Hypertensive heart disease with heart failure; I50.9 Heart failure, unspecified; E11.9 Type 2 diabetes mellitus without complications; G40.909 Epilepsy, unspecified, not intractable, without status epilepticus; J45.909 Unspecified asthma, uncomplicated; Z79.4 Long term (current) use of insulin; Z88.6 Allergy status to analgesic agent
CPT/HCPCS: 36415; 71045; 80048; 83880; 85025; 99284

== ENCOUNTER 2020-09-05 11:03 | Emergency (ER) | payer MEDICARE, MEDICAID ==
[~2020-09-05] VITALS: Ht 165.1 cm; Wt 77.0 kg
[~2020-09-05 11:03] MED LIST changes: -METF-816 MT; +METF-874 MT; -PANT40TA4 MT; +PANT40TA51 MT
[2020-09-05] MEDS ORDERED: KETOROLAC 30MG/ML VIAL IV STA (11:19)
[2020-09-05] MEDS ORDERED: ONDANSETRON HCL 4MG/2ML INJ IV STA (11:19)
[2020-09-05 12:08] LABS: CLARITY URINE CLEAR (CLEAR); COLOR URINE YELLOW (YELLOW); KETONES URINE NEGATIVE (NEGATIVE); LEUKOCYTE ESTERASE URINE TRACE (NEGATIVE); NITRITE URINE NEGATIVE (NEGATIVE); OCCULT BLOOD URINE NEGATIVE (NEGATIVE); PROTEIN URINE NEGATIVE (NEGATIVE); SPECIFIC GRAVITY URINE 1.016 (1.005-1.030); UROBILINOGEN URINE 0.2 E.U./dL (0.2-1.0)
[2020-09-05 12:09] LABS: BASOPHILS % 0.6 % (0.0-2.0); EOSINOPHILS % 1.5 % (0.0-5.0); HEMATOCRIT. 37.3 % (36.0-48.0); HEMOGLOBIN. 12.4 g/dL (12.0-16.0); LYMPHOCYTES % 40.4 % (20.0-50.0); MEAN CORPUSCULAR HEMOGLOBIN 34.1 pg (28.0-32.0); MEAN CORPUSCULAR VOLUME 102.5 fL (81.0-99.0); MEAN PLATELET VOLUME 7.9 fl (7.4-10.4); MONOCYTES % 8.9 % (2.0-8.0); NEUTROPHILS % 48.6 % (40.0-76.0); PLATELET 214 x1000/uL (130-400); RED BLOOD CELL COUNT 3.64 mill/uL (4.2-5.4); RED CELL DISTRIBUTION WIDTH 12.6 % (11.6-14.6)
[2020-09-05 12:15] VITALS: BP 184/90
[2020-09-05 12:17] LABS: PROTHROMBIN TIME 10.5 sec (9.6-11.0)
[2020-09-05 12:29] LABS: CHLORIDE 112 mEq/L (98-107)
== END 2020-09-05 14:49 | disposition home or self-care (01) ==
LOC: ER 11:23
DX: R10.9 Unspecified abdominal pain (principal); J45.909 Unspecified asthma, uncomplicated; E11.9 Type 2 diabetes mellitus without complications; I11.9 Hypertensive heart disease without heart failure; R56.9 Unspecified convulsions; Z79.4 Long term (current) use of insulin; Z88.6 Allergy status to analgesic agent; Z79.82 Long term (current) use of aspirin
CPT/HCPCS: 36415; 71045; 80053; 81003; 83690; 84484; 85025; 85610; 93005; 96374; 96375; 99285; J1885; J2405

== ENCOUNTER 2020-11-03 10:00 | Inpatient (IN) | payer MEDICARE, MEDICAID ==
[~2020-11-03] VITALS: Ht 167.6 cm; Wt 68.0 kg
[2020-11-03] MEDS ORDERED: ONDANSETRON HCL 4MG/2ML INJ IV STA (10:23)
[2020-11-03] MEDS ORDERED: MORPHINE SULFATE 4 MG/ML CPJ (NOT FOR IM USE) IV STA (10:23)
[2020-11-03] MEDS ORDERED: SODIUM CHLORIDE 0.9% 1,000 ML IV ONE (10:30)
[2020-11-03 11:27] LABS: BASOPHILS % 0.4 % (0.0-2.0); CHLORIDE 113 mEq/L (98-107); HEMATOCRIT. 33.3 % (36.0-48.0); HEMOGLOBIN. 11.4 g/dL (12.0-16.0); LYMPHOCYTES % 38.5 % (20.0-50.0); MEAN CORPUSCULAR VOLUME 102.7 fL (81.0-99.0); MEAN PLATELET VOLUME 8.5 fl (7.4-10.4); MONOCYTES % 7.4 % (2.0-8.0); NEUTROPHILS % 51.7 % (40.0-76.0); PLATELET 205 x1000/uL (130-400); RED BLOOD CELL COUNT 3.24 mill/uL (4.2-5.4); RED CELL DISTRIBUTION WIDTH 13.1 % (11.6-14.6)
[2020-11-03 11:30] LABS: PROTHROMBIN TIME 10.3 sec (9.6-11.0)
[2020-11-03 14:51] LABS: CLARITY URINE CLEAR (CLEAR); COLOR URINE YELLOW (YELLOW); KETONES URINE NEGATIVE (NEGATIVE); LEUKOCYTE ESTERASE URINE TRACE (NEGATIVE); NITRITE URINE NEGATIVE (NEGATIVE); OCCULT BLOOD URINE NEGATIVE (NEGATIVE); PH URINE 5.5 (4.5-8.0); PROTEIN URINE NEGATIVE (NEGATIVE); SPECIFIC GRAVITY URINE 1.014 (1.005-1.030); UROBILINOGEN URINE 0.2 E.U./dL (0.2-1.0)
[2020-11-03 16:30] VITALS: BP 201/83
[2020-11-03] MEDS ORDERED: FAMO40TA70 PO (17:12)
[2020-11-03] MEDS ORDERED: KETO5DRO80 RIGHTEYE (17:12)
[2020-11-03] MEDS ORDERED: DORZ10DR9 RIGHTEYE (17:12)
[2020-11-03] MEDS ORDERED: B25 PO (17:12)
[2020-11-03] MEDS ORDERED: ACET-2708 MT (17:12)
[2020-11-03] MEDS ORDERED: FLUT9.9S BOTHNSTRLS (17:12)
[2020-11-03] MEDS ORDERED: METH50TA5 PO (17:12)
[2020-11-03 20:00] VITALS: BP 173/71
[2020-11-03] MEDS ORDERED: MAGNESIUM/ALUMINUM HYDROXIDE/SIMETHICONE 30ML UDC PO PRN (20:45)
[2020-11-03] MEDS ORDERED: DEXTROSE 50% WATER 50ML SYRINGE IV PRN (20:45)
[2020-11-03] MEDS ORDERED: HYDRALAZINE 20MG/ML VIAL IV PRN (20:45)
[2020-11-03] MEDS ORDERED: ONDANSETRON HCL 4MG/2ML INJ IV PRN (20:45)
[2020-11-03] MEDS ORDERED: DIPHENHYDRAMINE 50MG/ML VIAL IV PRN (20:45)
[2020-11-03] MEDS ORDERED: ACETAMINOPHEN 325MG TABLET PO PRN (20:45)
[2020-11-03] MEDS ORDERED: LORAZEPAM 1MG TABLET PO PRN (20:45)
[2020-11-03] MEDS ORDERED: ACETAMINOPHEN 650MG/20.3ML UDC GT PRN (20:45)
[2020-11-03] MEDS ORDERED: IPRATROPIUM/ALBUTEROL 0.5-3(2.5)MG/3ML NEB HHN PRN (21:00)
[2020-11-03] MEDS: BLOOD SUGAR DIAGNOSTIC STRIP TEST SCH (21:00)
[2020-11-03] MEDS: INSULIN LISPRO 100 UNITS/ML SUBCUT SCH (21:00)
[2020-11-03] MEDS: PANTOPRAZOLE SODIUM 40 MG/VIAL IV SCH (22:05)
[2020-11-03] MEDS: HYDRALAZINE HCL 50MG TABLET PO SCH (22:06)
[2020-11-03] MEDS: TRAZODONE HCL 50MG TABLET PO SCH (22:06)
[2020-11-03] MEDS: MORPHINE SULFATE 2 MG/ML CPJ (NOT FOR IM USE) IV PRN (22:46)
[2020-11-03] MEDS: SODIUM CHLORIDE 0.9% 1,000 ML IV SCH (22:46)
[2020-11-03] MEDS: INSULIN GLARGINE UD 100 UNITS/ML SYR SUBCUT SCH (22:47)
[2020-11-04] VITALS: BP 147/69
[2020-11-04 04:00] VITALS: BP 156/75
[2020-11-04] MEDS: HYDRALAZINE HCL 50MG TABLET PO SCH ×3 (05:24→21:02)
[2020-11-04] MEDS: MORPHINE SULFATE 2 MG/ML CPJ (NOT FOR IM USE) IV PRN ×2 (05:24→18:53)
[2020-11-04 05:40] LABS: BASOPHILS % 0.2 % (0.0-2.0); HEMOGLOBIN. 10.8 g/dL (12.0-16.0); LYMPHOCYTES % 46.7 % (20.0-50.0); MEAN CORPUSCULAR HEMOGLOBIN 34.2 pg (28.0-32.0); MEAN CORPUSCULAR VOLUME 101.1 fL (81.0-99.0); MEAN PLATELET VOLUME 8.4 fl (7.4-10.4); NEUTROPHILS % 43.1 % (40.0-76.0); PLATELET 185 x1000/uL (130-400); RED BLOOD CELL COUNT 3.17 mill/uL (4.2-5.4)
[2020-11-04 05:43] LABS: CHLORIDE 113 mEq/L (98-107)
[2020-11-04 05:50] LABS: PHOSPHORUS 3.7 mg/dL (2.5-4.9)
[2020-11-04] MEDS: BLOOD SUGAR DIAGNOSTIC STRIP TEST SCH ×4 (07:10→21:02)
[2020-11-04] MEDS: INSULIN LISPRO 100 UNITS/ML SUBCUT SCH ×4 (07:40→21:00)
[2020-11-04] MEDS: LOSARTAN POTASSIUM 50 MG TABLET PO SCH (09:44)
[2020-11-04] MEDS: SODIUM CHLORIDE 0.9% 1,000 ML IV SCH ×2 (09:44→17:30)
[2020-11-04] MEDS: PANTOPRAZOLE SODIUM 40 MG/VIAL IV SCH (09:44)
[2020-11-04 20:00] VITALS: BP 152/82
[2020-11-04] MEDS: TRAZODONE HCL 50MG TABLET PO SCH (20:57)
[2020-11-04] MEDS: INSULIN GLARGINE UD 100 UNITS/ML SYR SUBCUT SCH (21:32)
[2020-11-05] VITALS: BP 127/63
[2020-11-05] MEDS: SODIUM CHLORIDE 0.9% 1,000 ML IV SCH ×3 (03:12→20:29)
[2020-11-05 04:00] VITALS: BP 135/60
[2020-11-05] MEDS: MORPHINE SULFATE 2 MG/ML CPJ (NOT FOR IM USE) IV PRN ×4 (04:47→20:31)
[2020-11-05] MEDS: HYDRALAZINE HCL 50MG TABLET PO SCH ×4 (05:49→20:30)
[2020-11-05] MEDS: BLOOD SUGAR DIAGNOSTIC STRIP TEST SCH ×4 (06:13→20:31)
[2020-11-05] MEDS: INSULIN LISPRO 100 UNITS/ML SUBCUT SCH ×4 (06:14→20:36)
[2020-11-05 08:27] VITALS: BP 164/61
[2020-11-05] MEDS: LOSARTAN POTASSIUM 50 MG TABLET PO SCH (09:34)
[2020-11-05] MEDS: PANTOPRAZOLE SODIUM 40 MG/VIAL IV SCH (09:34)
[2020-11-05] MEDS ORDERED: DOCUSATE SODIUM SUGAR FREE 100MG/10ML UDC PO SCH (11:30)
[2020-11-05 12:01] VITALS: BP 149/68
[2020-11-05] MEDS ORDERED: LIDOCAINE HCL 1% 20ML VIAL (Pyxis) INJ ONE (14:54)
[2020-11-05 15:59] VITALS: BP 156/68
[2020-11-05] MEDS: METOCLOPRAMIDE HCL 10MG/2ML VIAL IV SCH (18:41)
[2020-11-05] MEDS: TRAZODONE HCL 50MG TABLET PO SCH (20:28)
[2020-11-05] MEDS: INSULIN GLARGINE UD 100 UNITS/ML SYR SUBCUT SCH (21:29)
[2020-11-06] VITALS: BP 143/56
[2020-11-06] MEDS: METOCLOPRAMIDE HCL 10MG/2ML VIAL IV SCH ×3 (00:06→11:20)
[2020-11-06 04:00] VITALS: BP 134/60
[2020-11-06] MEDS: HYDRALAZINE HCL 50MG TABLET PO SCH ×2 (05:59→13:12)
[2020-11-06] MEDS: MORPHINE SULFATE 2 MG/ML CPJ (NOT FOR IM USE) IV PRN ×2 (06:00→11:20)
[2020-11-06] MEDS: INSULIN LISPRO 100 UNITS/ML SUBCUT SCH ×2 (06:14→12:40)
[2020-11-06] MEDS: BLOOD SUGAR DIAGNOSTIC STRIP TEST SCH ×2 (06:14→13:08)
[2020-11-06 07:01] LABS: BASOPHILS % 0.3 % (0.0-2.0); EOSINOPHILS % 1.2 % (0.0-5.0); HEMATOCRIT. 30.2 % (36.0-48.0); HEMOGLOBIN. 10.4 g/dL (12.0-16.0); LYMPHOCYTES % 30.2 % (20.0-50.0); MEAN CORPUSCULAR HEMOGLOBIN 34.9 pg (28.0-32.0); MEAN CORPUSCULAR VOLUME 101.5 fL (81.0-99.0); MEAN PLATELET VOLUME 8.4 fl (7.4-10.4); MONOCYTES % 11.4 % (2.0-8.0); NEUTROPHILS % 56.9 % (40.0-76.0); PLATELET 147 x1000/uL (130-400); RED BLOOD CELL COUNT 2.98 mill/uL (4.2-5.4); RED CELL DISTRIBUTION WIDTH 12.7 % (11.6-14.6)
[2020-11-06 07:11] LABS: CHLORIDE 115 mEq/L (98-107)
[2020-11-06 08:00] VITALS: BP 133/61
[2020-11-06] MEDS: LOSARTAN POTASSIUM 50 MG TABLET PO SCH (08:45)
[2020-11-06] MEDS: SODIUM CHLORIDE 0.9% 1,000 ML IV SCH (08:45)
[2020-11-06] MEDS: PANTOPRAZOLE SODIUM 40 MG/VIAL IV SCH (08:45)
[2020-11-06 12:00] VITALS: BP 162/77
[2020-11-06 17:43] VITALS: BP 142/78
[2020-12-02] MEDS ORDERED: AMLO10TA80 PO ×2 (15:00)
[2020-12-02] MEDS ORDERED: LOSA50TA41 MT ×2 (15:00)
[2020-12-02] MEDS ORDERED: GABA-529 MT (15:03)
[2020-12-02] MEDS ORDERED: DOCU-138 MT (15:03)
[2020-12-02] MEDS ORDERED: LOSA100T32 MT (15:03)
[2020-12-02] MEDS ORDERED: AMLO10TA80 MT (15:03)
== END 2020-11-06 18:10 | disposition home or self-care (01) | DRG 392 ==
LOC: ER 10:00 → ENRESERV 15:27 → 8WST 15:44
PROVIDERS: ADMIT Internal Medicine; ATTEND Internal Medicine
PROC: 02HV33Z Insertion of Infusion Device into Superior Vena Cava, Percutaneous Approach (ICD-10-PCS; principal; 2020-11-05)
PROC: B548ZZA Ultrasonography of Superior Vena Cava, Guidance (ICD-10-PCS; 2020-11-05)
PROC: B5181ZA Fluoroscopy of Superior Vena Cava using Low Osmolar Contrast, Guidance (ICD-10-PCS; 2020-11-05)
DX: K29.70 Gastritis, unspecified, without bleeding (principal); R10.30 Lower abdominal pain, unspecified; R19.5 Other fecal abnormalities; D53.9 Nutritional anemia, unspecified; E11.9 Type 2 diabetes mellitus without complications; I11.9 Hypertensive heart disease without heart failure; F41.9 Anxiety disorder, unspecified; R16.0 Hepatomegaly, not elsewhere classified; Z20.822 Contact with and (suspected) exposure to COVID-19; Z87.891 Personal history of nicotine dependence; Z88.8 Allergy status to other drugs, medicaments and biological substances; Z79.899 Other long term (current) drug therapy; J44.9 Chronic obstructive pulmonary disease, unspecified
CPT/HCPCS: 36415; 36573; 74176; 80048; 80053; 81003; 82962; 83036; 83735; 84100; 85025; 86850; 86900; 87426; 93970; 99285; C1725; C9113; J1815; J2270; J2405; J2765; J3490; J7030

== ENCOUNTER 2020-12-12 09:49 | Emergency (ER) | payer MEDICARE, MEDICAID ==
[~2020-12-12] VITALS: Ht 170.2 cm; Wt 64.0 kg
[~2020-12-12 09:49] MED LIST changes: +ACET-2708 MT; +AMLO10TA80 MT; +B25 PO; -CARB4TAB8 PO; +DOCU-138 MT; +DORZ10DR9 RIGHTEYE; -EMPA10TA MT; +FAMO40TA70 PO; +FLUT9.9S BOTHNSTRLS; -GABA-290 MT; +GABA-529 MT; -ISON300T19 MT; +KETO5DRO80 RIGHTEYE; +LOSA100T32 MT; +METH50TA5 PO; -METO25TA6 MT; -PANT40TA51 MT; -PREG75CA MT; -SUCR1TAB MT; -VERA120T13 MT
[2020-12-12] MEDS ORDERED: ONDANSETRON HCL 4MG/2ML INJ IV STA (10:12)
[2020-12-12] MEDS ORDERED: MORPHINE SULFATE 4 MG/ML CPJ (NOT FOR IM USE) IV STA (10:12)
[2020-12-12] MEDS ORDERED: MAGNESIUM CITRATE 300ML SOLUTION PO ONE (10:15)
[2020-12-12] MEDS ORDERED: LACTULOSE 20G/30ML UDC PO ONE (10:15)
[2020-12-12 10:54] LABS: BASOPHILS % 0.3 % (0.0-2.0); EOSINOPHILS % 1.7 % (0.0-5.0); HEMATOCRIT. 35.7 % (36.0-48.0); HEMOGLOBIN. 12.4 g/dL (12.0-16.0); LYMPHOCYTES % 37.8 % (20.0-50.0); MEAN CORPUSCULAR HEMOGLOBIN 35.4 pg (28.0-32.0); MEAN CORPUSCULAR VOLUME 101.6 fL (81.0-99.0); MEAN PLATELET VOLUME 8.7 fl (7.4-10.4); MONOCYTES % 8.2 % (2.0-8.0); PLATELET 201 x1000/uL (130-400); RED BLOOD CELL COUNT 3.51 mill/uL (4.2-5.4); RED CELL DISTRIBUTION WIDTH 12.5 % (11.6-14.6)
[2020-12-12 10:57] LABS: CHLORIDE 113 mEq/L (98-107)
[2020-12-12] MEDS ORDERED: POLY17PO3 PO (11:20)
[2020-12-12 12:58] VITALS: BP 183/86
== END 2020-12-12 13:04 | disposition home or self-care (01) ==
LOC: ER 09:49
DX: K59.00 Constipation, unspecified (principal); R10.9 Unspecified abdominal pain; I11.9 Hypertensive heart disease without heart failure; J45.909 Unspecified asthma, uncomplicated; E11.9 Type 2 diabetes mellitus without complications; R56.9 Unspecified convulsions; Z79.4 Long term (current) use of insulin; Z88.6 Allergy status to analgesic agent; Z79.82 Long term (current) use of aspirin
CPT/HCPCS: 36415; 80053; 83690; 85025; 96374; 96375; 99284; J2270; J2405

== ENCOUNTER 2020-12-27 16:24 | Emergency (ER) | payer MEDICARE, MEDICAID ==
[~2020-12-27] VITALS: Ht 165.1 cm; Wt 78.0 kg
[~2020-12-27 16:24] MED LIST changes: +POLY17PO3 PO
[2020-12-27] MEDS ORDERED: MAGNESIUM/ALUMINUM HYDROXIDE/SIMETHICONE 30ML UDC PO STA (17:34)
[2020-12-27 18:48] LABS: CLARITY URINE CLEAR (CLEAR); COLOR URINE YELLOW (YELLOW); KETONES URINE NEGATIVE (NEGATIVE); LEUKOCYTE ESTERASE URINE NEGATIVE (NEGATIVE); NITRITE URINE NEGATIVE (NEGATIVE); OCCULT BLOOD URINE NEGATIVE (NEGATIVE); PROTEIN URINE 1+ (NEGATIVE); SPECIFIC GRAVITY URINE 1.017 (1.005-1.030); UROBILINOGEN URINE 0.2 E.U./dL (0.2-1.0)
[2020-12-27 18:50] LABS: BASOPHILS % 0.4 % (0.0-2.0); EOSINOPHILS % 1.4 % (0.0-5.0); HEMOGLOBIN. 12.4 g/dL (12.0-16.0); LYMPHOCYTES % 37.6 % (20.0-50.0); MEAN CORPUSCULAR HEMOGLOBIN 34.6 pg (28.0-32.0); MEAN CORPUSCULAR VOLUME 100.5 fL (81.0-99.0); MEAN PLATELET VOLUME 7.8 fl (7.4-10.4); NEUTROPHILS % 53.6 % (40.0-76.0); PLATELET 221 x1000/uL (130-400); RED BLOOD CELL COUNT 3.58 mill/uL (4.2-5.4); RED CELL DISTRIBUTION WIDTH 12.7 % (11.6-14.6)
[2020-12-27 18:56] LABS: CHLORIDE 113 mEq/L (98-107)
[2020-12-27 20:00] VITALS: BP 137/81
[2020-12-27] MEDS ORDERED: OMEP40CA12 MT (20:35)
== END 2020-12-27 20:44 | disposition home or self-care (01) ==
LOC: ER 16:24
DX: R10.9 Unspecified abdominal pain (principal); J45.909 Unspecified asthma, uncomplicated; I11.9 Hypertensive heart disease without heart failure; R56.9 Unspecified convulsions; E11.9 Type 2 diabetes mellitus without complications; Z79.4 Long term (current) use of insulin; Z88.6 Allergy status to analgesic agent; Z79.82 Long term (current) use of aspirin
CPT/HCPCS: 36415; 74176; 80053; 81003; 85025; 99284

== ENCOUNTER 2021-01-05 20:35 | Inpatient (IN) | payer MEDICARE, MEDICAID ==
[~2021-01-05] VITALS: Ht 152.4 cm; Wt 74.0 kg
[~2021-01-05 20:35] MED LIST changes: +OMEP40CA12 MT
[2021-01-05] MEDS ORDERED: ACETAMINOPHEN 325MG TABLET PO ONE (21:00)
[2021-01-05] MEDS ORDERED: SODIUM CHLORIDE 0.9% 1,000 ML IV ONE (21:00)
[2021-01-05 22:07] LABS: BASOPHILS % 0.6 % (0.0-2.0); EOSINOPHILS % 2.3 % (0.0-5.0); HEMATOCRIT. 30.8 % (36.0-48.0); HEMOGLOBIN. 11.2 g/dL (12.0-16.0); LYMPHOCYTES % 43.6 % (20.0-50.0); MEAN CORPUSCULAR HEMOGLOBIN 36.2 pg (28.0-32.0); MEAN CORPUSCULAR VOLUME 99.5 fL (81.0-99.0); MEAN PLATELET VOLUME 8.1 fl (7.4-10.4); MONOCYTES % 10.2 % (2.0-8.0); NEUTROPHILS % 43.3 % (40.0-76.0); PLATELET 190 x1000/uL (130-400); RED CELL DISTRIBUTION WIDTH 12.6 % (11.6-14.6)
[2021-01-05 22:10] LABS: CHLORIDE 111 mEq/L (98-107)
[2021-01-05] MEDS ORDERED: MECLIZINE 25MG TABLET PO ONE (22:15)
[2021-01-05] MEDS ORDERED: TRAMADOL 50MG TABLET PO NR (23:00)
[2021-01-05] MEDS ORDERED: INSULIN REGULAR (HUMULIN R) 300UNITS/3ML VIAL SUBCUT NR (23:00)
[2021-01-06] MEDS: MORPHINE SULFATE 2 MG/ML CPJ (NOT FOR IM USE) IV PRN ×4 (03:37→16:13)
[2021-01-06] MEDS ORDERED: CLONIDINE 0.2MG TABLET PO PRN (17:13)
[2021-01-06 18:38] VITALS: BP 182/72
[2021-01-06 18:40] VITALS: BP 182/70
[2021-01-06] MEDS ORDERED: MECLIZINE 25MG TABLET PO PRN (18:45)
[2021-01-06] MEDS ORDERED: DEXTROSE 50% WATER 50ML SYRINGE IV PRN (18:45)
[2021-01-06] MEDS ORDERED: TRAMADOL 50MG TABLET PO PRN (18:45)
[2021-01-06] MEDS ORDERED: CLONIDINE 0.1MG TABLET PO PRN (18:45)
[2021-01-06 20:00] VITALS: BP 144/66
[2021-01-06] MEDS: BLOOD SUGAR DIAGNOSTIC STRIP TEST SCH (20:53)
[2021-01-06] MEDS: AMLODIPINE 10MG TABLET PO SCH (20:53)
[2021-01-06] MEDS: INSULIN LISPRO 100 UNITS/ML SUBCUT SCH (21:00)
[2021-01-07] VITALS (15 sets, daily range): BP systolic 100–165; BP diastolic 52–149
[2021-01-07] MEDS: HYDROCODONE/ACETAMINOPHEN 5/325MG TABLET PO PRN ×3 (00:35→14:52)
[2021-01-07 02:31] LABS: CLARITY URINE CLEAR (CLEAR); COLOR URINE YELLOW (YELLOW); KETONES URINE NEGATIVE (NEGATIVE); LEUKOCYTE ESTERASE URINE NEGATIVE (NEGATIVE); NITRITE URINE NEGATIVE (NEGATIVE); OCCULT BLOOD URINE NEGATIVE (NEGATIVE); PH URINE 5.5 (4.5-8.0); PROTEIN URINE 2+ (NEGATIVE); SPECIFIC GRAVITY URINE 1.015 (1.005-1.030); UROBILINOGEN URINE 0.2 E.U./dL (0.2-1.0)
[2021-01-07] MEDS: BLOOD SUGAR DIAGNOSTIC STRIP TEST SCH ×4 (05:51→21:01)
[2021-01-07 07:23] LABS: CHLORIDE 111 mEq/L (98-107)
[2021-01-07] MEDS: AMLODIPINE 10MG TABLET PO SCH (08:51)
[2021-01-07] MEDS: INSULIN LISPRO 100 UNITS/ML SUBCUT SCH ×4 (08:52→21:08)
[2021-01-07] MEDS: ENOXAPARIN 40MG/0.4ML SYR SUBCUT SCH (08:53)
[2021-01-07 12:33] LABS: BASOPHILS % 0.7 % (0.0-2.0); HEMATOCRIT. 37.6 % (36.0-48.0); HEMOGLOBIN. 13.3 g/dL (12.0-16.0); LYMPHOCYTES % 43.6 % (20.0-50.0); MEAN CORPUSCULAR HEMOGLOBIN 35.2 pg (28.0-32.0); MEAN CORPUSCULAR VOLUME 99.6 fL (81.0-99.0); MEAN PLATELET VOLUME 8.8 fl (7.4-10.4); MONOCYTES % 10.9 % (2.0-8.0); NEUTROPHILS % 42.8 % (40.0-76.0); PLATELET 196 x1000/uL (130-400); RED BLOOD CELL COUNT 3.78 mill/uL (4.2-5.4); RED CELL DISTRIBUTION WIDTH 12.8 % (11.6-14.6)
[2021-01-07 13:50] LABS: *AMPHETAMINES SCREEN URINE NEGATIVE (NEGATIVE); *BARBITURATES SCREEN URINE NEGATIVE (NEGATIVE); PHENCYCLIDINE URINE SCREEN NEGATIVE (NEGATIVE)
[2021-01-07 13:54] LABS: *BENZODIAZEPINES SCREEN URINE NEGATIVE (NEGATIVE); *COCAINE SCREEN URINE NEGATIVE (NEGATIVE)
[2021-01-07 13:55] LABS: CANNABINOID URINE SCREEN PRESUMTIVE POSITIVE (NEGATIVE); METHADONE URINE SCREEN NEGATIVE (NEGATIVE); OPIATES URINE SCREEN PRESUMTIVE POSITIVE (NEGATIVE)
[2021-01-07] MEDS ORDERED: ZOLPIDEM TARTRATE 5MG TABLET PO PRN (20:45)
[2021-01-08] VITALS (7 sets, daily range): BP systolic 128–162; BP diastolic 61–94
[2021-01-08] MEDS: HYDROCODONE/ACETAMINOPHEN 5/325MG TABLET PO PRN ×2 (02:18→09:48)
[2021-01-08] MEDS: BLOOD SUGAR DIAGNOSTIC STRIP TEST SCH ×2 (06:11→12:24)
[2021-01-08] MEDS: INSULIN LISPRO 100 UNITS/ML SUBCUT SCH ×2 (07:20→12:30)
[2021-01-08 07:51] LABS: CORTISOL 11.7 ucg/dL
[2021-01-08] MEDS: AMLODIPINE 10MG TABLET PO SCH (08:30)
[2021-01-08] MEDS: ENOXAPARIN 40MG/0.4ML SYR SUBCUT SCH (08:31)
[2021-01-08] MEDS ORDERED: LACTULOSE 20G/30ML UDC PO NR (11:45)
[2021-01-08] MEDS ORDERED: LOSARTAN POTASSIUM 100 MG TABLET PO SCH (15:30)
== END 2021-01-08 16:25 | disposition home or self-care (01) | DRG 74 ==
LOC: ER 20:35 → 3WST 01-06 00:31 → ENRESERV 01-06 16:31
PROVIDERS: ADMIT Internal Medicine; ATTEND Internal Medicine
PROC: 4A10X4Z Monitoring of Central Nervous Electrical Activity, External Approach (ICD-10-PCS; principal; 2021-01-08)
DX: G90.8 Other disorders of autonomic nervous system (principal); E87.8 Other disorders of electrolyte and fluid balance, not elsewhere classified; I25.10 Atherosclerotic heart disease of native coronary artery without angina pectoris; D53.9 Nutritional anemia, unspecified; E78.5 Hyperlipidemia, unspecified; F12.90 Cannabis use, unspecified, uncomplicated; I10 Essential (primary) hypertension; E11.9 Type 2 diabetes mellitus without complications; J45.909 Unspecified asthma, uncomplicated; R63.5 Abnormal weight gain; I25.2 Old myocardial infarction; Z88.6 Allergy status to analgesic agent; Z79.899 Other long term (current) drug therapy; Z79.1 Long term (current) use of non-steroidal anti-inflammatories (NSAID); Z79.01 Long term (current) use of anticoagulants; Z79.4 Long term (current) use of insulin; Z68.32 Body mass index [BMI] 32.0-32.9, adult
CPT/HCPCS: 36415; 70551; 71045; 80048; 80053; 80305; 81003; 82533; 82607; 82962; 83036; 83880; 84443; 84484; 85025; 93005; 95816; 96361; 97116; 97162; 99285; J1650; J1815; J2270; J7030; J8597

== ENCOUNTER 2021-02-11 16:41 | Emergency (ER) | payer MEDICARE, MEDICAID ==
[~2021-02-11] VITALS: Ht 165.1 cm; Wt 64.0 kg
[~2021-02-11 16:41] MED LIST changes: -ACET-2708 MT; -LOSA100T32 MT
[2021-02-11] MEDS ORDERED: ASPIRIN 81MG TABLET PO ONE (21:45)
[2021-02-11] MEDS ORDERED: NITROGLYCERIN 0.4MG TABLET SL SL PRN (21:45)
[2021-02-11] MEDS ORDERED: HYDROCODONE/ACETAMINOPHEN 5/325MG TABLET PO ONE (23:00)
[2021-02-12 00:17] LABS: BASOPHILS % 0.5 % (0.0-2.0); EOSINOPHILS % 1.5 % (0.0-5.0); HEMATOCRIT. 33.6 % (36.0-48.0); HEMOGLOBIN. 11.7 g/dL (12.0-16.0); LYMPHOCYTES % 40.2 % (20.0-50.0); MEAN CORPUSCULAR HEMOGLOBIN 34.8 pg (28.0-32.0); MEAN CORPUSCULAR VOLUME 99.5 fL (81.0-99.0); MEAN PLATELET VOLUME 7.6 fl (7.4-10.4); MONOCYTES % 7.8 % (2.0-8.0); PLATELET 201 x1000/uL (130-400); RED BLOOD CELL COUNT 3.38 mill/uL (4.2-5.4); RED CELL DISTRIBUTION WIDTH 12.8 % (11.6-14.6)
[2021-02-12 00:22] LABS: CHLORIDE 113 mEq/L (98-107); PROTHROMBIN TIME 10.6 sec (9.6-11.0)
[2021-02-12 00:24] VITALS: BP 165/82
== END 2021-02-12 00:53 | disposition home or self-care (01) ==
LOC: ER 16:41
DX: R07.89 Other chest pain (principal); I25.10 Atherosclerotic heart disease of native coronary artery without angina pectoris; E11.9 Type 2 diabetes mellitus without complications; I10 Essential (primary) hypertension; Z79.82 Long term (current) use of aspirin; Z79.899 Other long term (current) drug therapy
CPT/HCPCS: 36415; 71045; 80053; 83880; 84484; 85025; 93005; 99285

== ENCOUNTER 2021-04-18 00:04 | Emergency (ER) | payer MEDICARE, MEDICAID ==
[~2021-04-18] VITALS: Ht 160 cm; Wt 68.0 kg
[~2021-04-18 00:04] MED LIST changes: -OMEP40CA12 MT; +OMEP40CA20 MT
[2021-04-18] MEDS ORDERED: MAGNESIUM/ALUMINUM HYDROXIDE/SIMETHICONE 30ML UDC PO STA (00:47)
[2021-04-18] MEDS ORDERED: HYDROCODONE/ACETAMINOPHEN 5/325MG TABLET PO STA (00:47)
[2021-04-18 01:46] LABS: BASOPHILS % 0.5 % (0.0-2.0); EOSINOPHILS % 1.3 % (0.0-5.0); HEMATOCRIT. 37.7 % (36.0-48.0); HEMOGLOBIN. 12.9 g/dL (12.0-16.0); LYMPHOCYTES % 26.8 % (20.0-50.0); MEAN CORPUSCULAR HEMOGLOBIN 34.5 pg (28.0-32.0); MEAN CORPUSCULAR VOLUME 100.9 fL (81.0-99.0); MEAN PLATELET VOLUME 7.7 fl (7.4-10.4); MONOCYTES % 8.5 % (2.0-8.0); NEUTROPHILS % 62.9 % (40.0-76.0); PLATELET 245 x1000/uL (130-400); RED BLOOD CELL COUNT 3.74 mill/uL (4.2-5.4); RED CELL DISTRIBUTION WIDTH 13.4 % (11.6-14.6)
[2021-04-18 01:49] LABS: CHLORIDE 113 mEq/L (98-107)
[2021-04-18] MEDS ORDERED: PROT40 MT (02:14)
[2021-04-18] MEDS ORDERED: TOPUD MT (02:14)
[2021-04-18 02:24] VITALS: BP 145/95
== END 2021-04-18 02:26 | disposition home or self-care (01) ==
LOC: ER 00:04
DX: R10.9 Unspecified abdominal pain (principal); J45.909 Unspecified asthma, uncomplicated; E11.9 Type 2 diabetes mellitus without complications; I10 Essential (primary) hypertension; R56.9 Unspecified convulsions; F79 Unspecified intellectual disabilities; Z79.4 Long term (current) use of insulin; Z79.82 Long term (current) use of aspirin; Z88.6 Allergy status to analgesic agent
CPT/HCPCS: 36415; 80053; 85025; 99283

== ENCOUNTER 2021-06-06 07:16 | Emergency (ER) | payer MEDICARE, MEDICAID ==
[~2021-06-06] VITALS: Ht 167.6 cm; Wt 59.0 kg
[~2021-06-06 07:16] MED LIST changes: +PROT40 MT; +TOPUD MT
[2021-06-06] MEDS ORDERED: MAGNESIUM/ALUMINUM HYDROXIDE/SIMETHICONE 30ML UDC PO ONE (07:45)
[2021-06-06] MEDS ORDERED: ASPIRIN 81MG TABLET PO ONE (07:45)
[2021-06-06] MEDS ORDERED: DICYCLOMINE 10 MG/5 ML ORAL SYR PO ONE (07:45)
[2021-06-06 08:13] LABS: BASOPHILS % 0.3 % (0.0-2.0); EOSINOPHILS % 1.4 % (0.0-5.0); HEMATOCRIT. 38.9 % (36.0-48.0); HEMOGLOBIN. 13.1 g/dL (12.0-16.0); LYMPHOCYTES % 32.5 % (20.0-50.0); MEAN CORPUSCULAR HEMOGLOBIN 33.8 pg (28.0-32.0); MEAN CORPUSCULAR VOLUME 100.8 fL (81.0-99.0); MEAN PLATELET VOLUME 7.9 fl (7.4-10.4); MONOCYTES % 8.8 % (2.0-8.0); PLATELET 217 x1000/uL (130-400); RED BLOOD CELL COUNT 3.86 mill/uL (4.2-5.4); RED CELL DISTRIBUTION WIDTH 13.3 % (11.6-14.6)
[2021-06-06 08:21] LABS: CHLORIDE 113 mEq/L (98-107)
[2021-06-06 08:25] LABS: ETHANOL BLOOD < 10 mg/dL
[2021-06-06] MEDS ORDERED: MORPHINE SULFATE 10 MG/ML CPJ IM ONE (09:00)
[2021-06-06] MEDS ORDERED: ACETAMINOPHEN WITH CODEINE 300/30MG TABLET PO ONE (12:00)
[2021-06-06 12:15] VITALS: BP 175/99
[2021-06-06 12:45] LABS: *AMPHETAMINES SCREEN URINE NEGATIVE (NEGATIVE); *BARBITURATES SCREEN URINE NEGATIVE (NEGATIVE); *BENZODIAZEPINES SCREEN URINE NEGATIVE (NEGATIVE); *COCAINE SCREEN URINE NEGATIVE (NEGATIVE); METHADONE URINE SCREEN NEGATIVE (NEGATIVE); OPIATES URINE SCREEN PRESUMTIVE POSITIVE (NEGATIVE)
[2021-06-06 12:46] LABS: CANNABINOID URINE SCREEN PRESUMTIVE POSITIVE (NEGATIVE); PHENCYCLIDINE URINE SCREEN NEGATIVE (NEGATIVE)
== END 2021-06-06 12:58 | disposition home or self-care (01) ==
LOC: ER 07:16
DX: R10.9 Unspecified abdominal pain (principal); R07.9 Chest pain, unspecified; J45.909 Unspecified asthma, uncomplicated; E11.9 Type 2 diabetes mellitus without complications; I10 Essential (primary) hypertension; R56.9 Unspecified convulsions; Z79.4 Long term (current) use of insulin; Z88.6 Allergy status to analgesic agent; Z79.82 Long term (current) use of aspirin
CPT/HCPCS: 36415; 71045; 80053; 80305; 80320; 83690; 83880; 84484; 85025; 93005; 96372; 99285; J2270; G0480

== ENCOUNTER 2021-07-16 17:48 | Emergency (ER) | payer MEDICARE, MEDICAID ==
[~2021-07-16] VITALS: Ht 162.6 cm; Wt 61.0 kg
[2021-07-16] MEDS ORDERED: METOCLOPRAMIDE HCL 10MG/2ML VIAL IV STA (18:36)
[2021-07-16] MEDS ORDERED: VISCOUS LIDOCAINE 2% 15 ML UDC PO STA (18:36)
[2021-07-16] MEDS ORDERED: MAGNESIUM/ALUMINUM HYDROXIDE/SIMETHICONE 30ML UDC PO STA (18:36)
[2021-07-16] MEDS ORDERED: SODIUM CHLORIDE 0.9% 1,000 ML IV ONE (18:45)
[2021-07-16 19:18] LABS: BASOPHILS % 0.6 % (0.0-2.0); EOSINOPHILS % 1.3 % (0.0-5.0); HEMATOCRIT. 38.8 % (36.0-48.0); HEMOGLOBIN. 13.2 g/dL (12.0-16.0); LYMPHOCYTES % 43.5 % (20.0-50.0); MEAN CORPUSCULAR HEMOGLOBIN 33.7 pg (28.0-32.0); NEUTROPHILS % 46.6 % (40.0-76.0); PLATELET 244 x1000/uL (130-400); RED BLOOD CELL COUNT 3.91 mill/uL (4.2-5.4); RED CELL DISTRIBUTION WIDTH 13.2 % (11.6-14.6)
[2021-07-16 19:23] LABS: CHLORIDE 112 mEq/L (98-107)
[2021-07-16] MEDS ORDERED: FAMO40TA70 MT (23:41)
[2021-07-16] MEDS ORDERED: METOCLOPRAMIDE HCL 10MG TABLET PO ONE (23:45)
[2021-07-16] MEDS ORDERED: METOCLOPRAMIDE HCL 10MG/2ML VIAL IV NR (23:45)
[2021-07-16] MEDS ORDERED: MAGNESIUM/ALUMINUM HYDROXIDE/SIMETHICONE 30ML UDC PO NR (23:45)
[2021-07-17 00:05] VITALS: BP 145/79
[2021-07-17] MEDS ORDERED: METOCLOPRAMIDE HCL 10MG TABLET PO SCH (00:15)
== END 2021-07-17 00:19 | disposition home or self-care (01) ==
LOC: ER 17:48
DX: R10.9 Unspecified abdominal pain (principal); G89.29 Other chronic pain; K27.9 Peptic ulcer, site unspecified, unspecified as acute or chronic, without hemorrhage or perforation; J45.909 Unspecified asthma, uncomplicated; E11.9 Type 2 diabetes mellitus without complications; I10 Essential (primary) hypertension; R56.9 Unspecified convulsions; Z79.4 Long term (current) use of insulin; Z88.6 Allergy status to analgesic agent; Z79.82 Long term (current) use of aspirin
CPT/HCPCS: 36415; 71045; 76705; 80053; 83690; 84484; 85025; 99285; J7030; J8597

== ENCOUNTER 2021-09-07 12:16 | Emergency (ER) | payer MEDICARE, MEDICAID ==
[~2021-09-07] VITALS: Ht 167.6 cm; Wt 63.5 kg
[~2021-09-07 12:16] MED LIST changes: +FAMO40TA70 MT
[2021-09-07 14:38] LABS: BASOPHILS % 0.4 % (0.0-2.0); EOSINOPHILS % 1.3 % (0.0-5.0); HEMATOCRIT. 35.6 % (36.0-48.0); HEMOGLOBIN. 12.2 g/dL (12.0-16.0); LYMPHOCYTES % 41.8 % (20.0-50.0); MEAN CORPUSCULAR HEMOGLOBIN 34.4 pg (28.0-32.0); MEAN PLATELET VOLUME 7.9 fl (7.4-10.4); MONOCYTES % 8.8 % (2.0-8.0); NEUTROPHILS % 47.7 % (40.0-76.0); PLATELET 190 x1000/uL (130-400); RED BLOOD CELL COUNT 3.57 mill/uL (4.2-5.4); RED CELL DISTRIBUTION WIDTH 13.3 % (11.6-14.6)
[2021-09-07 14:39] LABS: CHLORIDE 109 mEq/L (98-107)
[2021-09-07 15:30] VITALS: BP 165/88
[2021-09-07] MEDS ORDERED: MAGNESIUM/ALUMINUM HYDROXIDE/SIMETHICONE 30ML UDC PO ONE (15:30)
[2021-09-07 15:41] LABS: CLARITY URINE CLEAR (CLEAR); COLOR URINE YELLOW (YELLOW); KETONES URINE NEGATIVE (NEGATIVE); LEUKOCYTE ESTERASE URINE NEGATIVE (NEGATIVE); NITRITE URINE NEGATIVE (NEGATIVE); OCCULT BLOOD URINE NEGATIVE (NEGATIVE); PROTEIN URINE 1+ (NEGATIVE); SPECIFIC GRAVITY URINE 1.017 (1.005-1.030); UROBILINOGEN URINE 0.2 E.U./dL (0.2-1.0)
[2021-09-07] MEDS ORDERED: OMEP40CA20 MT (15:41)
== END 2021-09-07 17:32 | disposition home or self-care (01) ==
LOC: ER 12:52
DX: R10.9 Unspecified abdominal pain (principal); E11.9 Type 2 diabetes mellitus without complications; I10 Essential (primary) hypertension; Z79.4 Long term (current) use of insulin; Z88.6 Allergy status to analgesic agent; Z79.82 Long term (current) use of aspirin
CPT/HCPCS: 36415; 71045; 74176; 80053; 81003; 84484; 85025; 99285

== ENCOUNTER 2021-10-28 09:34 | Emergency (ER) | payer MEDICARE, MEDICAID ==
[~2021-10-28] VITALS: Ht 165.1 cm; Wt 73.0 kg
[2021-10-28] MEDS ORDERED: VISCOUS LIDOCAINE 2% 15 ML UDC PO STA (13:36)
[2021-10-28] MEDS ORDERED: MAGNESIUM/ALUMINUM HYDROXIDE/SIMETHICONE 30ML UDC PO STA (13:36)
[2021-10-28] MEDS ORDERED: HYDROCODONE/ACETAMINOPHEN 5/325MG TABLET PO ONE (13:45)
[2021-10-28 13:57] VITALS: BP 153/66
[2021-10-28 14:05] LABS: CHLORIDE 114 mEq/L (98-107)
[2021-10-28 14:10] LABS: BASOPHILS % 0.3 % (0.0-2.0); EOSINOPHILS % 1.1 % (0.0-5.0); HEMATOCRIT. 34.6 % (36.0-48.0); HEMOGLOBIN. 11.6 g/dL (12.0-16.0); LYMPHOCYTES % 31.4 % (20.0-50.0); MEAN CORPUSCULAR HEMOGLOBIN 34.2 pg (28.0-32.0); MEAN CORPUSCULAR VOLUME 102.4 fL (81.0-99.0); MEAN PLATELET VOLUME 8.2 fl (7.4-10.4); MONOCYTES % 8.5 % (2.0-8.0); NEUTROPHILS % 58.7 % (40.0-76.0); PLATELET 175 x1000/uL (130-400); RED BLOOD CELL COUNT 3.38 mill/uL (4.2-5.4); RED CELL DISTRIBUTION WIDTH 13.9 % (11.6-14.6)
[2021-10-28] MEDS ORDERED: OMEP40CA20 MT (14:28)
[2021-10-28] MEDS ORDERED: FAMO-135 MT (14:28)
== END 2021-10-28 14:44 | disposition home or self-care (01) ==
LOC: ER 09:51
DX: R10.13 Epigastric pain (principal); R60.0 Localized edema; G62.9 Polyneuropathy, unspecified; E11.9 Type 2 diabetes mellitus without complications; K21.9 Gastro-esophageal reflux disease without esophagitis; I10 Essential (primary) hypertension; J45.909 Unspecified asthma, uncomplicated; F12.10 Cannabis abuse, uncomplicated; Z79.4 Long term (current) use of insulin; Z88.6 Allergy status to analgesic agent; Z79.82 Long term (current) use of aspirin
CPT/HCPCS: 36415; 71045; 80053; 83880; 85025; 99284

== ENCOUNTER 2021-11-14 11:10 | Emergency (ER) | payer MEDICARE, MEDICAID ==
[~2021-11-14] VITALS: Ht 165.1 cm; Wt 77.0 kg
[~2021-11-14 11:10] MED LIST changes: +FAMO-135 MT
[2021-11-14 11:37] LABS: BASOPHILS % 0.4 % (0.0-2.0); EOSINOPHILS % 1.7 % (0.0-5.0); HEMATOCRIT. 35.1 % (36.0-48.0); HEMOGLOBIN. 11.9 g/dL (12.0-16.0); LYMPHOCYTES % 33.1 % (20.0-50.0); MEAN CORPUSCULAR HEMOGLOBIN 34.5 pg (28.0-32.0); MEAN CORPUSCULAR VOLUME 101.7 fL (81.0-99.0); MEAN PLATELET VOLUME 8.2 fl (7.4-10.4); MONOCYTES % 8.5 % (2.0-8.0); NEUTROPHILS % 56.3 % (40.0-76.0); PLATELET 220 x1000/uL (130-400); RED BLOOD CELL COUNT 3.45 mill/uL (4.2-5.4); RED CELL DISTRIBUTION WIDTH 13.5 % (11.6-14.6)
[2021-11-14 11:45] LABS: CHLORIDE 111 mEq/L (98-107)
[2021-11-14] MEDS ORDERED: KETOROLAC 30MG/ML VIAL IV ONE (12:00)
[2021-11-14 12:04] VITALS: BP 162/71
== END 2021-11-14 13:48 | disposition home or self-care (01) ==
LOC: ER 11:10
DX: R53.1 Weakness (principal); I10 Essential (primary) hypertension; E11.9 Type 2 diabetes mellitus without complications; J45.909 Unspecified asthma, uncomplicated; Z79.4 Long term (current) use of insulin; Z88.6 Allergy status to analgesic agent; Z79.82 Long term (current) use of aspirin
CPT/HCPCS: 36415; 71045; 80053; 83880; 85025; 93005; 99285

== ENCOUNTER 2021-12-05 19:42 | Emergency (ER) | payer MEDICARE, MEDICAID ==
[~2021-12-05] VITALS: Ht 172.7 cm; Wt 73.0 kg
[2021-12-05] MEDS ORDERED: AMLODIPINE 5MG TABLET PO ONE (20:45)
[2021-12-05] MEDS ORDERED: ACETAMINOPHEN 325MG TABLET PO ONE (20:45)
[2021-12-05] MEDS ORDERED: TRAMADOL 50MG TABLET PO ONE (21:30)
[2021-12-05 22:08] LABS: BASOPHILS % 0.3 % (0.0-2.0); HEMATOCRIT. 39.3 % (36.0-48.0); HEMOGLOBIN. 13.1 g/dL (12.0-16.0); LYMPHOCYTES % 33.8 % (20.0-50.0); MEAN CORPUSCULAR HEMOGLOBIN 34.8 pg (28.0-32.0); MONOCYTES % 8.4 % (2.0-8.0); NEUTROPHILS % 55.5 % (40.0-76.0); PLATELET 198 x1000/uL (130-400); RED BLOOD CELL COUNT 3.78 mill/uL (4.2-5.4); RED CELL DISTRIBUTION WIDTH 13.8 % (11.6-14.6)
[2021-12-05 22:14] LABS: CHLORIDE 111 mEq/L (98-107)
[2021-12-05 22:18] LABS: CLARITY URINE CLEAR (CLEAR); COLOR URINE YELLOW (YELLOW); KETONES URINE NEGATIVE (NEGATIVE); LEUKOCYTE ESTERASE URINE 1+ (NEGATIVE); NITRITE URINE NEGATIVE (NEGATIVE); OCCULT BLOOD URINE NEGATIVE (NEGATIVE); PROTEIN URINE TRACE (NEGATIVE); SPECIFIC GRAVITY URINE 1.017 (1.005-1.030); UROBILINOGEN URINE 0.2 E.U./dL (0.2-1.0)
[2021-12-05 22:20] LABS: ETHANOL BLOOD < 10 mg/dL
[2021-12-05 22:32] LABS: *AMPHETAMINES SCREEN URINE NEGATIVE (NEGATIVE); *BARBITURATES SCREEN URINE NEGATIVE (NEGATIVE); *BENZODIAZEPINES SCREEN URINE NEGATIVE (NEGATIVE); *COCAINE SCREEN URINE NEGATIVE (NEGATIVE); CANNABINOID URINE SCREEN PRESUMTIVE POSITIVE (NEGATIVE); METHADONE URINE SCREEN NEGATIVE (NEGATIVE); OPIATES URINE SCREEN NEGATIVE (NEGATIVE); PHENCYCLIDINE URINE SCREEN NEGATIVE (NEGATIVE)
[2021-12-05] MEDS ORDERED: TRAM50TA3 MT (22:32)
[2021-12-05] MEDS ORDERED: NITR-87 MT (22:32)
[2021-12-05 22:55] VITALS: BP 175/90
== END 2021-12-05 23:05 | disposition home or self-care (01) ==
LOC: ER 19:42
DX: R51.9 Headache, unspecified (principal); R10.9 Unspecified abdominal pain; N39.0 Urinary tract infection, site not specified; I10 Essential (primary) hypertension; E11.9 Type 2 diabetes mellitus without complications; R56.9 Unspecified convulsions; J43.9 Emphysema, unspecified; Z79.4 Long term (current) use of insulin; Z88.6 Allergy status to analgesic agent; Z88.8 Allergy status to other drugs, medicaments and biological substances; Z79.82 Long term (current) use of aspirin; Z86.59 Personal history of other mental and behavioral disorders
CPT/HCPCS: 36415; 80053; 80305; 80320; 81003; 81025; 85025; 93005; 99284; G0480

== ENCOUNTER 2022-01-05 14:12 | Emergency (ER) | payer MEDICARE, MEDICAID ==
[~2022-01-05] VITALS: Ht 162.6 cm; Wt 82.0 kg
[~2022-01-05 14:12] MED LIST changes: -LAMO25TA15 MT; +LAMO25TB3 MT; -LURA80TA MT; +LURA80TA2 MT; +NITR-87 MT; +TRAM50TA3 MT
[2022-01-05] MEDS ORDERED: KETOROLAC 30MG/ML VIAL IV STA (15:12)
[2022-01-05] MEDS ORDERED: KETOROLAC 30MG/ML VIAL IV NR (15:12)
[2022-01-05] MEDS ORDERED: SODIUM CHLORIDE 0.9% 1,000 ML IV ONE (15:15)
[2022-01-05] MEDS ORDERED: DIPHENHYDRAMINE 50MG/ML VIAL IV NR (15:15)
[2022-01-05] MEDS ORDERED: METOCLOPRAMIDE HCL 10MG/2ML VIAL IV NR (15:15)
[2022-01-05] MEDS ORDERED: DIPHENHYDRAMINE 50MG/ML VIAL IV ONE (15:15)
[2022-01-05] MEDS ORDERED: METOCLOPRAMIDE HCL 10MG/2ML VIAL IV ONE (15:15)
[2022-01-05 17:21] LABS: BASOPHILS % 0.3 % (0.0-2.0); EOSINOPHILS % 2.1 % (0.0-5.0); HEMOGLOBIN. 12.2 g/dL (12.0-16.0); LYMPHOCYTES % 39.3 % (20.0-50.0); MEAN CORPUSCULAR VOLUME 102.9 fL (81.0-99.0); MEAN PLATELET VOLUME 7.8 fl (7.4-10.4); MONOCYTES % 9.9 % (2.0-8.0); NEUTROPHILS % 48.4 % (40.0-76.0); PLATELET 216 x1000/uL (130-400); RED CELL DISTRIBUTION WIDTH 13.5 % (11.6-14.6)
[2022-01-05 17:30] LABS: CHLORIDE 113 mEq/L (98-107)
[2022-01-05 19:30] LABS: CLARITY URINE CLEAR (CLEAR); COLOR URINE YELLOW (YELLOW); KETONES URINE NEGATIVE (NEGATIVE); LEUKOCYTE ESTERASE URINE TRACE (NEGATIVE); NITRITE URINE NEGATIVE (NEGATIVE); OCCULT BLOOD URINE NEGATIVE (NEGATIVE); PH URINE 6.5 (4.5-8.0); PROTEIN URINE TRACE (NEGATIVE); SPECIFIC GRAVITY URINE 1.014 (1.005-1.030); UROBILINOGEN URINE 0.2 E.U./dL (0.2-1.0)
[2022-01-05 20:46] VITALS: BP 157/72
== END 2022-01-05 21:00 | disposition home or self-care (01) ==
LOC: ER 15:07
DX: R51.9 Headache, unspecified (principal); R10.30 Lower abdominal pain, unspecified; J45.909 Unspecified asthma, uncomplicated; E11.9 Type 2 diabetes mellitus without complications; I10 Essential (primary) hypertension; Z79.899 Other long term (current) drug therapy
CPT/HCPCS: 36415; 71045; 74176; 80053; 81003; 83605; 83690; 84484; 85025; 93005; 96361; 96374; 96375; 99285; J1200; J1885; J2765; J7030

== ENCOUNTER 2022-01-27 18:39 | Emergency (ER) | payer MEDICARE, MEDICAID ==
[~2022-01-27] VITALS: Ht 162.6 cm; Wt 82.0 kg
[2022-01-27] MEDS ORDERED: HYDRALAZINE 20MG/ML VIAL IV ONE (22:15)
[2022-01-27 22:52] LABS: CLARITY URINE CLOUDY (CLEAR); COLOR URINE YELLOW (YELLOW); KETONES URINE NEGATIVE (NEGATIVE); LEUKOCYTE ESTERASE URINE 1+ (NEGATIVE); NITRITE URINE NEGATIVE (NEGATIVE); OCCULT BLOOD URINE NEGATIVE (NEGATIVE); PH URINE 5.5 (4.5-8.0); PROTEIN URINE 2+ (NEGATIVE)
[2022-01-28] MEDS ORDERED: HYDROCODONE/ACETAMINOPHEN 5/325MG TABLET PO ONE (00:15)
[2022-01-28 01:34] LABS: BASOPHILS % 0.4 % (0.0-2.0); EOSINOPHILS % 1.5 % (0.0-5.0); HEMATOCRIT. 38.7 % (36.0-48.0); HEMOGLOBIN. 12.7 g/dL (12.0-16.0); LYMPHOCYTES % 40.8 % (20.0-50.0); MEAN CORPUSCULAR HEMOGLOBIN 33.8 pg (28.0-32.0); MEAN CORPUSCULAR VOLUME 102.8 fL (81.0-99.0); MEAN PLATELET VOLUME 8.1 fl (7.4-10.4); MONOCYTES % 10.5 % (2.0-8.0); NEUTROPHILS % 46.8 % (40.0-76.0); PLATELET 183 x1000/uL (130-400); RED BLOOD CELL COUNT 3.76 mill/uL (4.2-5.4); RED CELL DISTRIBUTION WIDTH 13.5 % (11.6-14.6)
[2022-01-28 01:35] LABS: CHLORIDE 112 mEq/L (98-107)
[2022-01-28] MEDS ORDERED: CEPH500T MT (02:06)
[2022-01-28 02:23] VITALS: BP 152/68
== END 2022-01-28 03:11 | disposition home or self-care (01) ==
LOC: ER 18:39
DX: R51.9 Headache, unspecified (principal); N39.0 Urinary tract infection, site not specified; J45.909 Unspecified asthma, uncomplicated; E11.9 Type 2 diabetes mellitus without complications; I10 Essential (primary) hypertension; F12.10 Cannabis abuse, uncomplicated; Z79.899 Other long term (current) drug therapy
CPT/HCPCS: 36415; 70450; 80053; 81003; 84484; 85025; 93005; 96374; 99285; J0360

== ENCOUNTER 2022-02-05 18:11 | Emergency (ER) | payer MEDICARE, MEDICAID ==
[~2022-02-05] VITALS: Ht 167.6 cm; Wt 77.0 kg
[~2022-02-05 18:11] MED LIST changes: +CEPH500T MT
[2022-02-05] MEDS ORDERED: ACETAMINOPHEN 325MG TABLET PO ONE (19:15)
[2022-02-05] MEDS ORDERED: DIPHENHYDRAMINE 50MG/ML VIAL IV ONE (19:15)
[2022-02-05] MEDS ORDERED: PROCHLORPERAZINE 10MG/2ML VIAL IV ONE (19:15)
[2022-02-05] MEDS ORDERED: HYDRALAZINE 20MG/ML VIAL IV ONE ×2 (20:30→21:45)
[2022-02-05 20:37] LABS: BASOPHILS % 0.5 % (0.0-2.0); EOSINOPHILS % 1.4 % (0.0-5.0); HEMATOCRIT. 38.4 % (36.0-48.0); LYMPHOCYTES % 39.3 % (20.0-50.0); MEAN CORPUSCULAR HEMOGLOBIN 34.3 pg (28.0-32.0); MEAN CORPUSCULAR VOLUME 101.4 fL (81.0-99.0); MEAN PLATELET VOLUME 8.5 fl (7.4-10.4); MONOCYTES % 8.9 % (2.0-8.0); NEUTROPHILS % 49.9 % (40.0-76.0); PLATELET 214 x1000/uL (130-400); RED BLOOD CELL COUNT 3.78 mill/uL (4.2-5.4); RED CELL DISTRIBUTION WIDTH 13.4 % (11.6-14.6)
[2022-02-05 20:50] LABS: CHLORIDE 109 mEq/L (98-107)
[2022-02-05] MEDS ORDERED: KETOROLAC 15MG/ML VIAL IV ONE (22:30)
[2022-02-05 23:03] LABS: CLARITY URINE CLEAR (CLEAR); COLOR URINE YELLOW (YELLOW); KETONES URINE NEGATIVE (NEGATIVE); LEUKOCYTE ESTERASE URINE NEGATIVE (NEGATIVE); NITRITE URINE NEGATIVE (NEGATIVE); OCCULT BLOOD URINE NEGATIVE (NEGATIVE); PROTEIN URINE NEGATIVE (NEGATIVE); SPECIFIC GRAVITY URINE 1.007 (1.005-1.030); UROBILINOGEN URINE 0.2 E.U./dL (0.2-1.0)
[2022-02-05 23:52] VITALS: BP 143/62
== END 2022-02-06 00:13 | disposition home or self-care (01) ==
LOC: ER 18:11
DX: R51.9 Headache, unspecified (principal); I16.0 Hypertensive urgency; I10 Essential (primary) hypertension; J45.909 Unspecified asthma, uncomplicated; E11.9 Type 2 diabetes mellitus without complications; R56.9 Unspecified convulsions; Z79.4 Long term (current) use of insulin; Z88.6 Allergy status to analgesic agent; Z88.8 Allergy status to other drugs, medicaments and biological substances; Z79.82 Long term (current) use of aspirin
CPT/HCPCS: 36415; 80053; 81003; 85025; 96374; 96375; 96376; 99285; J0360; J0780; J1200; J1885

== ENCOUNTER 2022-02-13 18:32 | Emergency (ER) | payer MEDICARE, MEDICAID ==
[~2022-02-13] VITALS: Ht 170.2 cm; Wt 80.0 kg
[2022-02-13] MEDS ORDERED: KETOROLAC 30MG/ML VIAL IV STA (20:01)
[2022-02-13] MEDS ORDERED: ONDANSETRON HCL 4MG/2ML INJ IV STA (20:01)
[2022-02-13] MEDS ORDERED: CLONIDINE 0.1MG TABLET PO ONE (20:15)
[2022-02-13] MEDS ORDERED: SODIUM CHLORIDE 0.9% 1,000 ML IV ONE (20:15)
[2022-02-13 21:09] LABS: BASOPHILS % 0.4 % (0.0-2.0); EOSINOPHILS % 1.3 % (0.0-5.0); HEMATOCRIT. 36.9 % (36.0-48.0); HEMOGLOBIN. 12.2 g/dL (12.0-16.0); LYMPHOCYTES % 33.1 % (20.0-50.0); MEAN CORPUSCULAR HEMOGLOBIN 33.9 pg (28.0-32.0); MEAN CORPUSCULAR VOLUME 102.4 fL (81.0-99.0); MONOCYTES % 8.4 % (2.0-8.0); NEUTROPHILS % 56.8 % (40.0-76.0); PLATELET 232 x1000/uL (130-400); RED CELL DISTRIBUTION WIDTH 13.3 % (11.6-14.6)
[2022-02-13 21:23] LABS: CHLORIDE 114 mEq/L (98-107)
[2022-02-13] MEDS ORDERED: MORPHINE SULFATE 4 MG/ML CPJ (NOT FOR IM USE) IV ONE (21:45)
[2022-02-13] MEDS ORDERED: CLONIDINE 0.1MG TABLET PO NR (23:15)
[2022-02-13] MEDS ORDERED: ONDANSETRON HCL 4MG/2ML INJ IV NR (23:15)
[2022-02-13] MEDS ORDERED: KETOROLAC 15MG/ML VIAL IV NR (23:15)
[2022-02-14] MEDS ORDERED: MORPHINE SULFATE 4 MG/ML CPJ (NOT FOR IM USE) IV ONE (00:30)
[2022-02-14] MEDS ORDERED: ACET-2708 MT (02:30)
[2022-02-14] MEDS ORDERED: MORPHINE SULFATE 4 MG/ML CPJ (NOT FOR IM USE) IV NR (03:30)
[2022-02-14 04:01] VITALS: BP 194/95
== END 2022-02-14 04:34 | disposition home or self-care (01) ==
LOC: ER 18:32
DX: R51.9 Headache, unspecified (principal); I10 Essential (primary) hypertension; R10.30 Lower abdominal pain, unspecified; J45.909 Unspecified asthma, uncomplicated; E11.9 Type 2 diabetes mellitus without complications; R56.9 Unspecified convulsions; Z79.4 Long term (current) use of insulin; Z88.6 Allergy status to analgesic agent; Z88.8 Allergy status to other drugs, medicaments and biological substances; Z79.82 Long term (current) use of aspirin
CPT/HCPCS: 36415; 70450; 71045; 74176; 80053; 83880; 84484; 85025; 93005; 96361; 96374; 96375; 96376; 99285; J1885; J2270; J2405; J7030

== ENCOUNTER 2022-04-15 15:46 | Inpatient (IN) | payer MEDICARE, MEDICAID ==
[~2022-04-15] VITALS: Ht 152.4 cm; Wt 74.8 kg
[~2022-04-15 15:46] MED LIST changes: +ACET-2708 MT
[2022-04-15 17:09] LABS: BASOPHILS % 0.4 % (0.0-2.0); EOSINOPHILS % 1.2 % (0.0-5.0); HEMATOCRIT. 40.1 % (36.0-48.0); HEMOGLOBIN. 13.4 g/dL (12.0-16.0); LYMPHOCYTES % 41.3 % (20.0-50.0); MEAN CORPUSCULAR HEMOGLOBIN 34.5 pg (28.0-32.0); MEAN CORPUSCULAR VOLUME 103.6 fL (81.0-99.0); MEAN PLATELET VOLUME 8.1 fl (7.4-10.4); MONOCYTES % 9.2 % (2.0-8.0); NEUTROPHILS % 47.9 % (40.0-76.0); PLATELET 209 x1000/uL (130-400); RED BLOOD CELL COUNT 3.86 mill/uL (4.2-5.4); RED CELL DISTRIBUTION WIDTH 13.1 % (11.6-14.6)
[2022-04-15 17:30] LABS: CHLORIDE 107 mEq/L (98-107)
[2022-04-15] MEDS ORDERED: IPRATROPIUM/ALBUTEROL 0.5-3(2.5)MG/3ML NEB HHN PRN (19:30)
[2022-04-15] MEDS ORDERED: ONDANSETRON HCL 4MG/2ML INJ IV PRN (19:30)
[2022-04-15] MEDS ORDERED: NALOXONE HCL 0.4MG/ML VIAL IV PRN (19:30)
[2022-04-15] MEDS ORDERED: CLONIDINE 0.1MG TABLET PO PRN (19:30)
[2022-04-15] MEDS ORDERED: ACETAMINOPHEN 325MG TABLET PO PRN (19:30)
[2022-04-15] MEDS: MORPHINE SULFATE 2 MG/ML CPJ (NOT FOR IM USE) IV PRN (20:06)
[2022-04-15] MEDS ORDERED: IOHEXOL-300 100 ML BOTTLE ONE (22:08)
[2022-04-15 23:27] VITALS: BP 135/64
[2022-04-16] VITALS (7 sets, daily range): BP systolic 121–135; BP diastolic 59–68
[2022-04-16] MEDS ORDERED: DEXTROSE 50% WATER 50ML SYRINGE IV PRN (00:15)
[2022-04-16] MEDS: MORPHINE SULFATE 2 MG/ML CPJ (NOT FOR IM USE) IV PRN ×4 (04:22→23:04)
[2022-04-16 06:34] LABS: BASOPHILS % 0.3 % (0.0-2.0); EOSINOPHILS % 1.6 % (0.0-5.0); HEMATOCRIT. 37.2 % (36.0-48.0); HEMOGLOBIN. 12.9 g/dL (12.0-16.0); LYMPHOCYTES % 42.2 % (20.0-50.0); MEAN CORPUSCULAR HEMOGLOBIN 34.9 pg (28.0-32.0); MEAN CORPUSCULAR VOLUME 100.5 fL (81.0-99.0); MEAN PLATELET VOLUME 8.1 fl (7.4-10.4); MONOCYTES % 9.4 % (2.0-8.0); NEUTROPHILS % 46.5 % (40.0-76.0); PLATELET 190 x1000/uL (130-400); RED CELL DISTRIBUTION WIDTH 12.6 % (11.6-14.6)
[2022-04-16] MEDS: BLOOD SUGAR DIAGNOSTIC STRIP TEST SCH ×4 (06:42→20:28)
[2022-04-16 07:54] LABS: CHLORIDE 110 mEq/L (98-107)
[2022-04-16] MEDS: INSULIN LISPRO 100 UNITS/ML SUBCUT SCH ×4 (09:38→20:35)
[2022-04-16] MEDS: PANTOPRAZOLE SODIUM 40 MG/VIAL IV SCH (10:12)
[2022-04-17] VITALS: BP 149/59
[2022-04-17] MEDS: DIPHENHYDRAMINE 50MG/ML VIAL IV PRN ×2 (00:19→21:34)
[2022-04-17 04:00] VITALS: BP 138/61
[2022-04-17] MEDS: BLOOD SUGAR DIAGNOSTIC STRIP TEST SCH ×4 (05:42→21:34)
[2022-04-17] MEDS: INSULIN LISPRO 100 UNITS/ML SUBCUT SCH ×4 (05:46→21:39)
[2022-04-17 08:00] VITALS: BP 149/69
[2022-04-17] MEDS: PANTOPRAZOLE SODIUM 40 MG/VIAL IV SCH (09:00)
[2022-04-17] MEDS ORDERED: REGADENOSON 0.4 MG/5 ML IV NR (10:15)
[2022-04-17] MEDS: HYDROCODONE/ACETAMINOPHEN 5/325MG TABLET PO PRN ×2 (11:19→19:39)
[2022-04-17 12:00] VITALS: BP 163/70
[2022-04-17 12:23] LABS: *AMPHETAMINES SCREEN URINE NEGATIVE (NEGATIVE); *BARBITURATES SCREEN URINE NEGATIVE (NEGATIVE); *BENZODIAZEPINES SCREEN URINE NEGATIVE (NEGATIVE); *COCAINE SCREEN URINE NEGATIVE (NEGATIVE); CANNABINOID URINE SCREEN PRESUMTIVE POSITIVE (NEGATIVE); METHADONE URINE SCREEN NEGATIVE (NEGATIVE); OPIATES URINE SCREEN PRESUMTIVE POSITIVE (NEGATIVE); PHENCYCLIDINE URINE SCREEN NEGATIVE (NEGATIVE)
[2022-04-17 16:00] VITALS: BP 133/79
[2022-04-17] MEDS: MORPHINE SULFATE 2 MG/ML CPJ (NOT FOR IM USE) IV PRN (16:36)
[2022-04-17] MEDS ORDERED: HYDRALAZINE 20MG/ML VIAL IV PRN (18:15)
[2022-04-17 20:00] VITALS: BP 155/81
[2022-04-17 21:34] LABS: BASOPHILS % 0.5 % (0.0-2.0); EOSINOPHILS % 1.1 % (0.0-5.0); HEMATOCRIT. 40.2 % (36.0-48.0); HEMOGLOBIN. 13.8 g/dL (12.0-16.0); MEAN CORPUSCULAR VOLUME 101.8 fL (81.0-99.0); MONOCYTES % 9.2 % (2.0-8.0); NEUTROPHILS % 51.2 % (40.0-76.0); PLATELET 192 x1000/uL (130-400); RED BLOOD CELL COUNT 3.95 mill/uL (4.2-5.4)
[2022-04-18] VITALS: BP 135/69
[2022-04-18] MEDS: MORPHINE SULFATE 2 MG/ML CPJ (NOT FOR IM USE) IV PRN ×2 (01:01→11:27)
[2022-04-18 04:00] VITALS: BP 133/76
[2022-04-18] MEDS: BLOOD SUGAR DIAGNOSTIC STRIP TEST SCH ×2 (07:00→12:33)
[2022-04-18] MEDS: INSULIN LISPRO 100 UNITS/ML SUBCUT SCH ×2 (07:00→12:10)
[2022-04-18 08:00] VITALS: BP 145/69
[2022-04-18] MEDS: PANTOPRAZOLE SODIUM 40 MG/VIAL IV SCH (09:03)
[2022-04-18 12:00] VITALS: BP 140/71
[2022-04-18 12:28] LABS: BASOPHILS % 0.3 % (0.0-2.0); EOSINOPHILS % 0.9 % (0.0-5.0); HEMATOCRIT. 41.6 % (36.0-48.0); HEMOGLOBIN. 14.4 g/dL (12.0-16.0); LYMPHOCYTES % 29.9 % (20.0-50.0); MEAN CORPUSCULAR VOLUME 100.7 fL (81.0-99.0); MEAN PLATELET VOLUME 7.9 fl (7.4-10.4); MONOCYTES % 8.3 % (2.0-8.0); NEUTROPHILS % 60.6 % (40.0-76.0); PLATELET 193 x1000/uL (130-400); RED BLOOD CELL COUNT 4.13 mill/uL (4.2-5.4); RED CELL DISTRIBUTION WIDTH 12.8 % (11.6-14.6)
[2022-04-18 15:24] VITALS: BP 140/71
== END 2022-04-18 17:00 | disposition home health service (06) | DRG 206 ==
LOC: ER 15:46 → 7EST 18:01 → EDBEDREQ 18:02 → EDBEDREQTM 18:02 → ENRESERV 22:18
PROVIDERS: ADMIT Internal Medicine; ATTEND Internal Medicine
PROC: 02HV33Z Insertion of Infusion Device into Superior Vena Cava, Percutaneous Approach (ICD-10-PCS; principal; 2022-04-17)
PROC: B5181ZA Fluoroscopy of Superior Vena Cava using Low Osmolar Contrast, Guidance (ICD-10-PCS; 2022-04-17)
PROC: B548ZZA Ultrasonography of Superior Vena Cava, Guidance (ICD-10-PCS; 2022-04-17)
DX: M94.0 Chondrocostal junction syndrome [Tietze] (principal); I50.30 Unspecified diastolic (congestive) heart failure; N17.9 Acute kidney failure, unspecified; I44.1 Atrioventricular block, second degree; T46.5X5A Adverse effect of other antihypertensive drugs, initial encounter; E11.9 Type 2 diabetes mellitus without complications; J45.909 Unspecified asthma, uncomplicated; E78.5 Hyperlipidemia, unspecified; I11.0 Hypertensive heart disease with heart failure; G40.909 Epilepsy, unspecified, not intractable, without status epilepticus; R19.5 Other fecal abnormalities; I25.2 Old myocardial infarction; Z79.01 Long term (current) use of anticoagulants; Z88.8 Allergy status to other drugs, medicaments and biological substances; Z86.718 Personal history of other venous thrombosis and embolism; Z82.49 Family history of ischemic heart disease and other diseases of the circulatory system; Y92.89 Other specified places as the place of occurrence of the external cause
CPT/HCPCS: 36415; 36573; 71045; 74177; 80048; 80053; 80061; 80305; 82962; 83036; 83735; 84484; 85025; 86850; 86900; 93005; 93306; 93970; 99285; C1725; C1769; C1893; C9113; J0360; J1200; J1815; J2270; J2405; Q9967

== ENCOUNTER 2022-05-20 15:52 | Inpatient (IN) | payer MEDICARE, MEDICAID ==
[~2022-05-20] VITALS: Ht 157.5 cm; Wt 76.2 kg
[~2022-05-20 15:52] MED LIST changes: -ACET-2708 MT; -CEPH500T MT; -DOCU-138 MT; -FAMO-135 MT; -FAMO40TA70 MT; -HYDR25TA MT; -KETO5DRO80 RIGHTEYE; -LACT10SO7 MT; -NITR-87 MT; -POLY17PO3 PO; -PROT40 MT; -TRAM50TA3 MT
[2022-05-20] MEDS ORDERED: ONDANSETRON HCL 4MG/2ML INJ IV NR (18:18)
[2022-05-20] MEDS ORDERED: SODIUM CHLORIDE 0.9% 1,000 ML IV ONE (18:30)
[2022-05-20] MEDS: ACETAMINOPHEN 325MG TABLET PO NR ×3 (18:42→18:45)
[2022-05-20 18:49] LABS: MEAN CORPUSCULAR HEMOGLOBIN 34.5 pg (28.0-32.0); MEAN CORPUSCULAR VOLUME 103.7 fL (81.0-99.0); MEAN PLATELET VOLUME 8.6 fl (7.4-10.4); PLATELET 200 x1000/uL (130-400); RED BLOOD CELL COUNT 3.47 mill/uL (4.2-5.4); RED CELL DISTRIBUTION WIDTH 13.2 % (11.6-14.6)
[2022-05-20 18:54] LABS: CHLORIDE 105 mEq/L (98-107)
[2022-05-20 19:06] LABS: BETA HYDROXYBUTYRATE 0.1 mMol/L (0.0-0.3)
[2022-05-20 19:13] LABS: PLATELET ESTIMATE NORMAL
[2022-05-20 19:36] LABS: CLARITY URINE CLEAR (CLEAR); COLOR URINE YELLOW (YELLOW); KETONES URINE NEGATIVE (NEGATIVE); LEUKOCYTE ESTERASE URINE NEGATIVE (NEGATIVE); NITRITE URINE NEGATIVE (NEGATIVE); OCCULT BLOOD URINE NEGATIVE (NEGATIVE); PROTEIN URINE NEGATIVE (NEGATIVE); SPECIFIC GRAVITY URINE 1.019 (1.005-1.030)
[2022-05-20] MEDS ORDERED: INSULIN REGULAR (HUMULIN R) 300UNITS/3ML VIAL IV NR (23:03)
[2022-05-21] MEDS ORDERED: MAGNESIUM/ALUMINUM HYDROXIDE/SIMETHICONE 30ML UDC PO PRN (00:15)
[2022-05-21] MEDS ORDERED: IPRATROPIUM/ALBUTEROL 0.5-3(2.5)MG/3ML NEB HHN PRN (00:15)
[2022-05-21] MEDS ORDERED: DOCUSATE SODIUM 100MG CAPSULE PO PRN (00:15)
[2022-05-21] MEDS ORDERED: CLONIDINE 0.1MG TABLET PO PRN (00:15)
[2022-05-21] MEDS ORDERED: ACETAMINOPHEN 325MG TABLET PO PRN ×2 (00:15)
[2022-05-21] MEDS ORDERED: ONDANSETRON HCL 4MG/2ML INJ IV PRN (00:15)
[2022-05-21] MEDS ORDERED: DEXTROSE 50% WATER 50ML SYRINGE IV PRN (01:15)
[2022-05-21] MEDS: TRAZODONE HCL 50MG TABLET PO SCH ×2 (03:48→21:01)
[2022-05-21 04:00] VITALS: BP 121/71
[2022-05-21 04:03] VITALS: BP 100/62
[2022-05-21] MEDS: BLOOD SUGAR DIAGNOSTIC STRIP TEST SCH ×4 (07:00→21:01)
[2022-05-21 08:22] VITALS: BP 121/55
[2022-05-21] MEDS: INSULIN LISPRO 100 UNITS/ML SUBCUT SCH ×4 (08:54→21:00)
[2022-05-21] MEDS: ASPIRIN 81MG EC TABLET PO SCH (08:55)
[2022-05-21] MEDS: FAMOTIDINE 20MG TABLET PO SCH (08:55)
[2022-05-21] MEDS: ATORVASTATIN CALCIUM 10MG TABLET PO SCH (08:55)
[2022-05-21] MEDS: LOSARTAN POTASSIUM 50 MG TABLET PO SCH (08:55)
[2022-05-21] MEDS: BUSPIRONE HCL 10MG TABLET PO SCH ×3 (08:55→17:57)
[2022-05-21] MEDS: HYDRALAZINE HCL 50MG TABLET PO SCH ×3 (08:55→16:33)
[2022-05-21] MEDS: METHAZOLAMIDE 50MG TABLET PO SCH ×2 (08:55→17:57)
[2022-05-21] MEDS: LAMOTRIGINE 25MG TABLET PO SCH (08:56)
[2022-05-21] MEDS: APIXABAN 5 MG TABLET PO SCH ×2 (08:56→21:01)
[2022-05-21] MEDS: AMLODIPINE 10MG TABLET PO SCH (08:56)
[2022-05-21] MEDS: DORZOLAM/TIMOLOL 2.23/0.68% OPHTH DROPS 10ML RIGHTEYE SCH ×3 (08:57→18:46)
[2022-05-21] MEDS ORDERED: ENOXAPARIN 40MG/0.4ML SYR SUBCUT SCH (09:00)
[2022-05-21] MEDS ORDERED: LAMOTRIGINE MT SCH (09:00)
[2022-05-21 09:06] LABS: CREATINE KINASE 45 IU/L (26-192); CREATINE KINASE MB FRACTION < 1.0 ng/mL (0.5-3.6)
[2022-05-21] MEDS ORDERED: NALOXONE HCL 0.4MG/ML VIAL IV PRN (09:15)
[2022-05-21 12:30] VITALS: BP 138/75
[2022-05-21] MEDS: HYDROCODONE/ACETAMINOPHEN 5/325MG TABLET PO PRN ×2 (12:34→22:56)
[2022-05-21] MEDS ORDERED: REGADENOSON 0.4 MG/5 ML IV ONE (15:15)
[2022-05-21 16:00] VITALS: BP 104/50
[2022-05-21 16:39] LABS: CREATINE KINASE 56 IU/L (26-192); CREATINE KINASE MB FRACTION < 1.0 ng/mL (0.5-3.6)
[2022-05-21] MEDS: FUROSEMIDE 40MG/4ML VIAL IVP SCH (17:57)
[2022-05-21 19:55] LABS: CREATINE KINASE 65 IU/L (26-192); CREATINE KINASE MB FRACTION < 1.0 ng/mL (0.5-3.6)
[2022-05-21 20:00] VITALS: BP 101/52
[2022-05-21 20:14] LABS: *AMPHETAMINES SCREEN URINE NEGATIVE (NEGATIVE); *BARBITURATES SCREEN URINE NEGATIVE (NEGATIVE); *BENZODIAZEPINES SCREEN URINE NEGATIVE (NEGATIVE); *COCAINE SCREEN URINE NEGATIVE (NEGATIVE); CANNABINOID URINE SCREEN PRESUMTIVE POSITIVE (NEGATIVE); METHADONE URINE SCREEN NEGATIVE (NEGATIVE); OPIATES URINE SCREEN PRESUMTIVE POSITIVE (NEGATIVE); PHENCYCLIDINE URINE SCREEN NEGATIVE (NEGATIVE)
[2022-05-21] MEDS ORDERED: MEDICATION NOT ON FORMULARY EA (Trazodone Hcl 100 MG) MT SCH (21:00)
[2022-05-21] MEDS ORDERED: TRAZODONE HCL 50MG TABLET PO SCH (21:00)
[2022-05-21] MEDS: LATANOPROST 0.005% OPHTH DROPS 2.5ML EACHEYE SCH (21:33)
[2022-05-22] VITALS: BP 121/59
[2022-05-22 04:00] VITALS: BP 137/99
[2022-05-22] MEDS: BLOOD SUGAR DIAGNOSTIC STRIP TEST SCH ×4 (06:19→20:46)
[2022-05-22] MEDS: INSULIN LISPRO 100 UNITS/ML SUBCUT SCH ×4 (07:50→21:00)
[2022-05-22 08:00] VITALS: BP 139/56
[2022-05-22] MEDS: ATORVASTATIN CALCIUM 10MG TABLET PO SCH (09:00)
[2022-05-22] MEDS: DORZOLAM/TIMOLOL 2.23/0.68% OPHTH DROPS 10ML RIGHTEYE SCH ×2 (09:00→17:00)
[2022-05-22] MEDS: ASPIRIN 81MG EC TABLET PO SCH ×2 (09:00→13:08)
[2022-05-22] MEDS: LAMOTRIGINE 25MG TABLET PO SCH ×2 (09:00→13:08)
[2022-05-22] MEDS: BUSPIRONE HCL 10MG TABLET PO SCH ×3 (09:00→17:18)
[2022-05-22] MEDS: FAMOTIDINE 20MG TABLET PO SCH ×2 (09:00→13:08)
[2022-05-22] MEDS: METHAZOLAMIDE 50MG TABLET PO SCH ×3 (09:00→17:18)
[2022-05-22] MEDS: HYDRALAZINE HCL 50MG TABLET PO SCH ×3 (09:00→17:18)
[2022-05-22] MEDS: AMLODIPINE 10MG TABLET PO SCH ×2 (09:00→13:07)
[2022-05-22] MEDS: LOSARTAN POTASSIUM 50 MG TABLET PO SCH ×2 (09:00→13:08)
[2022-05-22] MEDS: APIXABAN 5 MG TABLET PO SCH ×2 (09:00→21:14)
[2022-05-22] MEDS: FUROSEMIDE 40MG/4ML VIAL IVP SCH (09:00)
[2022-05-22] MEDS ORDERED: REGADENOSON 0.4 MG/5 ML IV ONE (11:09)
[2022-05-22 12:00] VITALS: BP 152/78
[2022-05-22] MEDS: HYDROCODONE/ACETAMINOPHEN 5/325MG TABLET PO PRN ×2 (13:10→17:19)
[2022-05-22 15:58] LABS: BASOPHILS % 0.5 % (0.0-2.0); EOSINOPHILS % 1.7 % (0.0-5.0); HEMATOCRIT. 37.7 % (36.0-48.0); HEMOGLOBIN. 12.7 g/dL (12.0-16.0); LYMPHOCYTES % 29.9 % (20.0-50.0); MEAN CORPUSCULAR HEMOGLOBIN 34.8 pg (28.0-32.0); MEAN CORPUSCULAR VOLUME 103.1 fL (81.0-99.0); MEAN PLATELET VOLUME 8.3 fl (7.4-10.4); MONOCYTES % 7.2 % (2.0-8.0); NEUTROPHILS % 60.7 % (40.0-76.0); PLATELET 195 x1000/uL (130-400); RED BLOOD CELL COUNT 3.66 mill/uL (4.2-5.4); RED CELL DISTRIBUTION WIDTH 12.9 % (11.6-14.6)
[2022-05-22 16:00] VITALS: BP 158/71
[2022-05-22 16:28] LABS: CHLORIDE 109 mEq/L (98-107)
[2022-05-22 18:04] LABS: T4 FREE 1.01 ng/dL (0.76-1.46)
[2022-05-22 20:00] VITALS: BP 121/72
[2022-05-22] MEDS: LATANOPROST 0.005% OPHTH DROPS 2.5ML EACHEYE SCH (21:13)
[2022-05-22] MEDS: TRAZODONE HCL 50MG TABLET PO SCH (21:14)
[2022-05-23] VITALS: BP 98/51
[2022-05-23 04:00] VITALS: BP 106/48
[2022-05-23] MEDS: BLOOD SUGAR DIAGNOSTIC STRIP TEST SCH (06:28)
[2022-05-23 08:00] VITALS: BP 118/64
[2022-05-23] MEDS: LOSARTAN POTASSIUM 50 MG TABLET PO SCH (08:59)
[2022-05-23] MEDS: HYDROCODONE/ACETAMINOPHEN 5/325MG TABLET PO PRN (08:59)
[2022-05-23] MEDS: BUSPIRONE HCL 10MG TABLET PO SCH (08:59)
[2022-05-23] MEDS: ASPIRIN 81MG EC TABLET PO SCH (08:59)
[2022-05-23] MEDS: FAMOTIDINE 20MG TABLET PO SCH (08:59)
[2022-05-23] MEDS: LAMOTRIGINE 25MG TABLET PO SCH (08:59)
[2022-05-23] MEDS: APIXABAN 5 MG TABLET PO SCH (08:59)
[2022-05-23] MEDS: ATORVASTATIN CALCIUM 10MG TABLET PO SCH (09:00)
[2022-05-23] MEDS: FUROSEMIDE 40MG/4ML VIAL IVP SCH (09:00)
[2022-05-23] MEDS: AMLODIPINE 10MG TABLET PO SCH (09:00)
[2022-05-23] MEDS: HYDRALAZINE HCL 50MG TABLET PO SCH (09:00)
[2022-05-23] MEDS: METHAZOLAMIDE 50MG TABLET PO SCH (09:00)
[2022-05-23] MEDS: DORZOLAM/TIMOLOL 2.23/0.68% OPHTH DROPS 10ML RIGHTEYE SCH (09:00)
[2022-05-23] MEDS: INSULIN LISPRO 100 UNITS/ML SUBCUT SCH (09:06)
[2022-05-23 11:08] VITALS: BP 118/64
== END 2022-05-23 13:32 | disposition home or self-care (01) | DRG 205 ==
LOC: ER 15:52 → MICUSO 23:19 → 6WST 05-21 03:05
PROVIDERS: ADMIT Internal Medicine; ATTEND Internal Medicine
DX: M94.0 Chondrocostal junction syndrome [Tietze] (principal); I50.33 Acute on chronic diastolic (congestive) heart failure; N17.9 Acute kidney failure, unspecified; I42.9 Cardiomyopathy, unspecified; I24.9 Acute ischemic heart disease, unspecified; I11.0 Hypertensive heart disease with heart failure; E11.65 Type 2 diabetes mellitus with hyperglycemia; E78.5 Hyperlipidemia, unspecified; I25.10 Atherosclerotic heart disease of native coronary artery without angina pectoris; J45.909 Unspecified asthma, uncomplicated; Z60.2 Problems related to living alone; F32.A Depression, unspecified; F41.9 Anxiety disorder, unspecified; G40.909 Epilepsy, unspecified, not intractable, without status epilepticus; Z28.310 Unvaccinated for COVID-19; Z88.8 Allergy status to other drugs, medicaments and biological substances; Z79.01 Long term (current) use of anticoagulants; Z79.4 Long term (current) use of insulin; Z79.899 Other long term (current) drug therapy; Z79.82 Long term (current) use of aspirin; Z86.718 Personal history of other venous thrombosis and embolism; Z82.49 Family history of ischemic heart disease and other diseases of the circulatory system
CPT/HCPCS: 36415; 71045; 78452; 80053; 80305; 81003; 82010; 82270; 82550; 82553; 82962; 83036; 83605; 83880; 84145; 84439; 84443; 84484; 85025; 93005; 93017; 93970; 99285; A9500; J1815; J1940; J2405; J2785

== ENCOUNTER 2023-03-30 00:45 | Emergency (ER) | payer MEDICARE, MEDICAID ==
[~2023-03-30] VITALS: Ht 167.6 cm; Wt 87.0 kg
[~2023-03-30 00:45] MED LIST changes: -AMLO10TA80 MT; +AMLO5TAB88 MT; -ASPI-1497 MT; -B25 PO; -BUSP10TA3 MT; -DOCU250C14 GT; +FAMO20TA8 MT; -FAMO40TA70 PO; -FLUT9.9S BOTHNSTRLS; -GABA-529 MT; +HYDR-4134 MT; -HYDR-4134 PO; -INSU100I19 SQ; -LOSA50TA41 MT; -METF-874 MT; -OMEP40CA20 MT; +QUET25TA PO; -TOPUD MT; +TRAZ-251 PO; -TRAZ-252 MT
[2023-03-30 00:47] VITALS: O2SAT 97
[2023-03-30 01:41] LABS: BASOPHILS % 0.4 % (0.0-2.0); DIFFERENTIAL COMMENT 0; EOSINOPHILS % 1.9 % (0.0-5.0); HEMATOCRIT. 36.3 % (36.0-48.0); LYMPHOCYTES % 50.5 % (20.0-50.0); MEAN CORPUSCULAR HEMOGLOBIN 33.4 pg (28.0-32.0); MEAN CORPUSCULAR HGB CONC 33.1 g/dL (31.0-37.0); MEAN CORPUSCULAR VOLUME 100.8 fL (81.0-99.0); MEAN PLATELET VOLUME 7.8 fl (7.4-10.4); MONOCYTES % 8.7 % (2.0-8.0); NEUTROPHILS % 38.5 % (40.0-76.0); PLATELET 246 x1000/uL (130-400); RED CELL DISTRIBUTION WIDTH 13.5 % (11.6-14.6); WHITE BLOOD COUNT 5.6 x1000/uL (4.5-11.0)
[2023-03-30 01:56] LABS: CHLORIDE 121 mEq/L (98-107); INDEX HEMOLYSI 1 (1-3); INDEX ICTERIC 1 (1-4); INDEX LIPEMIC 1 (1-3); SODIUM 143 mEq/L (136-145)
[2023-03-30 02:18] LABS: ALANINE AMINOTRANSFERASE 24 IU/L (13-61); ALBUMIN 3.7 g/dL (3.4-5.0); ASPARTATE AMINOTRANSFERASE 22 IU/L (15-37); BILIRUBIN TOTAL 0.2 mg/dL (0.1-1.0); CALCIUM 9.5 mg/dL (8.5-10.1); CARBON DIOXIDE 19 mEq/L (21-32); CREATININE 1.6 mg/dL (0.6-1.3); GLUCOSE 138 mg/dL (70-105); NT PRO B-TYPE NATRIURETIC PEP 53 pg/mL (5-125); PROTEIN TOTAL 7.8 g/dL (6.0-8.3); TROPONIN I HIGH SENSITIVITY 7 ng/L (<54); UREA NITROGEN BLOOD 36 mg/dL (7-21)
[2023-03-30 12:52] VITALS: BP 128/86; PULSE 86; RESP 16; TEMP 98.4
== END 2023-03-30 12:59 | disposition home or self-care (01) ==
LOC: ER 00:45
DX: R05.9 Cough, unspecified (principal); J44.9 Chronic obstructive pulmonary disease, unspecified; E11.9 Type 2 diabetes mellitus without complications; E78.00 Pure hypercholesterolemia, unspecified; I10 Essential (primary) hypertension; Z88.6 Allergy status to analgesic agent; Z88.8 Allergy status to other drugs, medicaments and biological substances
CPT/HCPCS: 36415; 71045; 80053; 83880; 84484; 85025; 93005; 99285

== ENCOUNTER 2023-05-08 11:21 | Day surgery (SDC) | payer MEDICARE, MEDICAID ==
[~2023-05-08] VITALS: Ht 167.6 cm; Wt 70.0 kg
[2023-05-08 11:30] VITALS: O2SAT 99
[2023-05-08] MEDS ORDERED: CEFAZOLIN 1000MG PREMIX 50 ML IV ONE ×2 (11:30)
[2023-05-08] MEDS ORDERED: CEFAZOLIN 2000MG in DEXTROSE 5% WATER 100ML IV SCH (12:00)
[2023-05-08 12:08] LABS: BASOPHILS % 0.3 % (0.0-2.0); DIFFERENTIAL COMMENT 0; HEMATOCRIT. 34.8 % (36.0-48.0); HEMOGLOBIN. 11.4 g/dL (12.0-16.0); LYMPHOCYTES % 28.9 % (20.0-50.0); MEAN CORPUSCULAR HEMOGLOBIN 33.2 pg (28.0-32.0); MEAN CORPUSCULAR HGB CONC 32.8 g/dL (31.0-37.0); MEAN CORPUSCULAR VOLUME 101.2 fL (81.0-99.0); MEAN PLATELET VOLUME 7.7 fl (7.4-10.4); MONOCYTES % 7.6 % (2.0-8.0); NEUTROPHILS % 62.2 % (40.0-76.0); PLATELET 253 x1000/uL (130-400); RED BLOOD CELL COUNT 3.44 mill/uL (4.2-5.4); RED CELL DISTRIBUTION WIDTH 14.2 % (11.6-14.6); WHITE BLOOD COUNT 7.3 x1000/uL (4.5-11.0)
[2023-05-08 12:23] LABS: INR 0.9; PROTHROMBIN TIME 10.1 sec (9.6-11.0)
[2023-05-08 12:24] LABS: CHLORIDE 119 mEq/L (98-107); INDEX HEMOLYSI 1 (1-3); INDEX ICTERIC 1 (1-4); INDEX LIPEMIC 1 (1-3); POTASSIUM 4.5 mEq/L (3.5-5.1); SODIUM 144 mEq/L (136-145)
[2023-05-08 12:32] LABS: ALANINE AMINOTRANSFERASE 10 IU/L (13-61); ALBUMIN 3.9 g/dL (3.4-5.0); ASPARTATE AMINOTRANSFERASE 8 IU/L (15-37); BILIRUBIN TOTAL 0.3 mg/dL (0.1-1.0); CALCIUM 9.8 mg/dL (8.5-10.1); CARBON DIOXIDE 20 mEq/L (21-32); CREATININE 1.4 mg/dL (0.6-1.3); GLUCOSE 152 mg/dL (70-105); PROTEIN TOTAL 7.8 g/dL (6.0-8.3); UREA NITROGEN BLOOD 36 mg/dL (7-21)
[2023-05-08 14:06] VITALS: BP 156/77; PULSE 99; RESP 20; TEMP 98.6
[2023-05-08] MEDS ORDERED: CEFAZOLIN SODIUM 1000MG/VIAL ONE ×2 (15:31)
[2023-05-08] MEDS ORDERED: PROPOFOL 200MG/20ML VIAL IV ONE (15:31)
[2023-05-08] MEDS ORDERED: ROCURONIUM BROMIDE 10MG/ML VIAL 5ML IV ONE (15:34)
[2023-05-08] MEDS ORDERED: SUCCINYLCHOLINE CHLORIDE 200MG/10ML IV ONE (15:39)
[2023-05-08] MEDS ORDERED: DEXAMETHASONE 4MG/ML 1ML VIAL ONE (15:39)
[2023-05-08] MEDS ORDERED: LIDOCAINE HCL 1% 20ML VIAL (Pyxis) INJ ONE (15:39)
[2023-05-08] MEDS ORDERED: ONDANSETRON HCL 4MG/2ML INJ ONE (15:39)
[2023-05-08] MEDS ORDERED: MEPERIDINE HCL/PF 25MG/ML CPJ IV PRN (16:15)
[2023-05-08] MEDS ORDERED: FENTANYL CITRATE/PF 50MCG/ML 2ML VIAL ONE (16:15)
[2023-05-08] MEDS ORDERED: ATROPINE SULFATE 1MG/10ML SYR IV PRN (16:15)
[2023-05-08] MEDS ORDERED: ONDANSETRON HCL 4MG/2ML INJ IV PRN (16:15)
[2023-05-08] MEDS ORDERED: FENTANYL CITRATE/PF 50MCG/ML 2ML VIAL IV PRN (16:15)
[2023-05-08] MEDS ORDERED: SODIUM CHLORIDE 0.9% 1,000 ML IV SCH (16:15)
== END 2023-05-08 18:05 | disposition home or self-care (01) ==
LOC: EDBEDREQ 11:56 → EDBEDREQTM 11:56 → ER 12:24 → OR 17:00
PROVIDERS: ATTEND Ophthalmology
DX: T85.398A Other mechanical complication of other ocular prosthetic devices, implants and grafts, initial encounter (principal); H40.10X0 Unspecified open-angle glaucoma, stage unspecified; Z94.7 Corneal transplant status; E11.9 Type 2 diabetes mellitus without complications; I10 Essential (primary) hypertension; J45.909 Unspecified asthma, uncomplicated; Z79.899 Other long term (current) drug therapy; Z98.890 Other specified postprocedural states; X58.XXXA Exposure to other specified factors, initial encounter; Y93.89 Activity, other specified; Y92.89 Other specified places as the place of occurrence of the external cause; Y99.8 Other external cause status
CPT/HCPCS: 66185; 66170; 80053; 85025; 85610; 36415; 93005; 99291; J3010; J0690; J1100; J3490 ×2; J2405; J2704; J0330; J7060; A4217; Z7610 ×26; J7030; A4215

== ENCOUNTER → 2023-10-16 | Day surgery (SDC) | payer MEDICARE, MEDICAID ==
[~2023-10-16] VITALS: Ht 152.4 cm; Wt 83.5 kg
[~2023-10-16] MED LIST changes: +BUSP10TA3 PO; +CLINDAMYCIN 600MG PREMIX 50 ML IV NR; +CLON0.1T PO; +DEXAMETHASONE 4MG/ML 1ML VIAL ONE; +DOCU100T PO; +FENTANYL CITRATE/PF 50MCG/ML 2ML VIAL IV PRN; +FENTANYL CITRATE/PF 50MCG/ML 2ML VIAL ONE; +FERR325T6 PO; +FOLI-43 PO; +GABA-532 PO; +HYDR-4001 PO; -HYDR-4134 MT; +HYDR25TA78 MT; +INSLIS SUBCUT; +IPRA3AMP31 IH; +KETO5DRO38 RIGHTEYE; +LEVVL SQ; +LIDO700A30 TP; +LIDOCAINE HCL 1% 10 MG/ML 10ML VIAL ONE; +LOPE2CAP PO; +LOSA50TA41 PO; +MAG30ORA PO; +METF-416 PO; +MIDAZOLAM HCL 2 MG/2 ML VIAL ONE; +NA P230E RC; +NALO4SPR NS; +ONDANSETRON HCL 4MG/2ML INJ ONE; +PRED5DRO22 RIGHTEYE; +PROPOFOL 200MG/20ML VIAL IV ONE; +PROT40 PO; +SENN-139 MT; +SODIUM CHLORIDE 0.9% 1,000 ML IV SCH; +SUCCINYLCHOLINE CHLORIDE 200MG/10ML IV ONE; +TOPUD PO; +TRIAMCINOLONE ACETONIDE 40MG/ML 1ML VIAL ONE
== END | disposition home or self-care (01) ==
LOC: OR 08:55
PROVIDERS: ATTEND Ophthalmology
DX: E11.39 Type 2 diabetes mellitus with other diabetic ophthalmic complication (principal); H40.89 Other specified glaucoma; I10 Essential (primary) hypertension; J45.909 Unspecified asthma, uncomplicated; F32.9 Major depressive disorder, single episode, unspecified; Z79.84 Long term (current) use of oral hypoglycemic drugs; Z86.73 Personal history of transient ischemic attack (TIA), and cerebral infarction without residual deficits; Z79.899 Other long term (current) drug therapy; Z98.890 Other specified postprocedural states; Z88.0 Allergy status to penicillin; Z88.8 Allergy status to other drugs, medicaments and biological substances
CPT/HCPCS: 66180; 82962; C1783; J3010; J1100; J3490 ×2; J2250; J2405; J2704; J0330; J3301; Z7610 ×10